=== PATIENT | male | born 1960 | race Caucasian/White ===

== ENCOUNTER → 2018-11-12 05:32 | Day surgery (SDC) | payer OTHER ==
--- NOTE | 2018-11-03 03:41 | HP ---
CC: Dr. Juan Miguel Denson * ADMISSION HISTORY AND PHYSICAL: DATE OF ADMISSION: 11/12/18 ATTENDING SURGEON: Dr. Fly Romero.* (DICTATED BY DESEAN RUFF) CHIEF COMPLAINT: Bleeding hemorrhoids. HISTORY OF PRESENT ILLNESS: This is a 58-year-old male known to our office from prior sleeve gastrectomy, who presents with a history of intermittently bleeding hemorrhoids for the past 2 to 3 years. He states that often times with bowel movements, he will notice the toilet water turn completely red and/ or have significant blood on the toilet paper. This occurs at least once weekly. He denies any pain. He did undergo colonoscopy at age 51 with apparently no significant problems at that time. He has been largely asymptomatic, though relates to feeling more tired or fatigued recently and wondered whether that could be from anemia, resulting from blood loss. His recent lab work from the end of July 2018 showed a hemoglobin of 14.2 and hematocrit of 40. His iron levels were fine. He is status post laparoscopic sleeve gastrectomy in 2012, but only recently began to resume bariatric followup. He was seen in the office by Dr. Romero on 07/14/18 at which time exam revealed a small skin tag at the 9 o'clock position. No mass was appreciated. Anoscopy was performed showing enlarged broad based internal hemorrhoids with stigmata of recent bleeding. The patient also had undergone prior hemorrhoidectomy 20 to 30 years ago after failure of banding. Dr. Romero has discussed with him the indications for surgery, the risks, benefits and alternatives as well as methods. The patient is agreeable to proceed as scheduled with examination under anesthesia and hemorrhoidectomy. PAST MEDICAL HISTORY: Morbid obesity (status post laparoscopic sleeve gastrectomy with resultant weight loss of 150 pounds which he has maintained at least 100 pounds weight loss), previously treated for hypertension but not at present, previously treated for type 2 diabetes. He has a history of GERD and dysthymic disorder. PAST SURGICAL HISTORY: Include laparoscopic sleeve gastrectomy 2012, open umbilical hernia repair with mesh in 2011, wisdom teeth extraction, and hemorrhoidectomy. No reported surgical or anesthesia complications (he did have urinary retention after the hemorrhoidectomy requiring an overnight hospital stay). CURRENT MEDICATIONS: 1. Paxil 20 mg once daily. 2. Omeprazole 20 mg once daily. 3. Multivitamin once daily. 4. Aspirin 81 mg once daily (the patient instructed to hold for 7 days preop). 5. Zolpidem 10 mg q.h.s. p.r.n. insomnia. 6. Topical hydrocortisone 10% cream p.r.n. for groin rash. 7. Vitamin B12 injection every month. DRUG ALLERGIES: LATEX (rash). FAMILY HISTORY: Negative for anesthesia problems, bleeding, or clotting disorders. SOCIAL HISTORY: The patient is and he has split custody with his 2 children. He works as a cosmetic maker. He denies use of tobacco. Drinks on average 1 alcoholic drink per day and denies other recreational drug use. REVIEW OF SYSTEMS: General: No recent constitutional symptoms or acute illnesses. His weight has been stable. HEENT: No problems reported. Cardiovascular: No chest pain, palpitations. He does state that he has a white coat syndrome in terms of his blood pressure. No history of murmur. Respiratory: No history of asthma, chronic cough, or shortness of breath. GI: GERD, controlled. No lower GI symptoms other than as indicated in the HPI. : No problems reported. Endocrine: Past history of type 2 diabetes with recent lab work showing a mildly elevated fasting glucose. I did not ask him if he had a recent A1c done. No history of thyroid dysfunction. Neuropsych: History of depression/dysthymic disorder. No additions. PHYSICAL EXAMINATION GENERAL: Well-developed, well-nourished male, in no acute distress. VITAL SIGNS: Height 6 feet 4 inches, weight 240 pounds. Blood pressure 160/100 , pulse 72, respirations 18. HEENT: Pupils equal, round, and reactive. EOMs intact. No conjunctival pallor. Oropharynx: Teeth in good repair. No intraoral lesions. NECK: No lymphadenopathy, thyromegaly, or masses. LUNGS: Clear to auscultation. No rales or wheezes. HEART: Regular rate and rhythm. No murmur noted. ABDOMEN: Well-healed subumbilical as well as laparoscopic incision sites. Soft , nontender to palpation. No palpable masses or organomegaly. GENITALIA: Not done. RECTAL: Not repeated today. See HPI. BACK: No spinous process or CVA tenderness. EXTREMITIES: No edema. NEUROLOGICAL: Grossly intact. SKIN: Warm and dry. No suspicious rashes or lesions noted. IMPRESSION: Bleeding internal hemorrhoids. PLAN: Examination under anesthesia; hemorrhoidectomy. DESEAN RUFF [id number]/[facility] #: [id number] [facility]
[~2018-11-12 05:32] MED LIST: Buffered Lidocaine 1% SYRIN* 1 ML/SYRINGE INTRADERM ONE; Bupivacaine 0.25% W/EPI* 10 ML SDV ONE; Bupivacaine 0.5% W/EPI SDV* 30 ML VIAL ONE; Bupivacaine 0.5%* 50 ML VIAL ONE; Dexamethasone IV* 4 MG/ML 1 ML (4 MG) IV SLOW PU ONE; Dexamethasone IV* 4 MG/ML 1 ML (4 MG) ONE; Famotidine IV* 10 MG/ML 2 ML (20 mg) IV ONE; Famotidine IV* 10 MG/ML 2 ML (20 mg) ONE; Gelfoam Sponge SIZE 100* SPONGE ONE; HYDROcodone/ACETAMIN 5-325 MG* 1 TAB PO PRN; Lactated Ringers 1000 ML Bag* 1,000 ML IV SCH; Lidocaine 1% INJ* 10 MG/ML 30 ML SDV ONE; Lidocaine 2% JELLY* 6 ML JELLY TOPICAL ONE; Lidocaine 2% PF * 5 ML VIAL ONE; Metoprolol Tartrate IV* 1 MG/ML 5 ML VIAL ONE; Midazolam* 1 MG/ML 5 ML VIAL (5 MG) ONE; Naloxone* 0.4 MG/ML 1 ML VIAL IV PRN; Ondansetron INJ* 2 MG/ML VIAL IV PRN; Propofol* 10 MG/ML 20 ML BTL ONE; ceFOXitin 2 GM IVPREMIX* 2 GM/50 ML BAG ONE; fentaNYL* 50 MCG/ML 2 ML VIAL (100 MCG VIAL) IV PRN; fentaNYL* 50 MCG/ML 2 ML VIAL (100 MCG VIAL) ONE; hydrALAZINE IV* 20 MG/ML VIAL ONE; oxyCODONE/Acetamin 5/325 MG* TAB PO PRN
--- NOTE | 2018-11-12 08:31 | BRIEFOPN ---
Brief Operative Note - Surgery Procedures: Procedures Pre-OP Diagnoses: Hemorrhoids Post-op Diagnosis: same Procedure: Exam under anesthesia, hemorrhoidectomy Surgeon: Heather Asst: none Anethesia: spinal, Aubrey EBL: minimal IVF: crystalloid Specimen: hemorrhoids Drains: none
[2018-11-12 10:03] VITALS: BP 141/95
--- NOTE | 2018-11-12 10:31 | OP ---
CC: Dr. Juan Miguel Denson * DATE OF OPERATION: 11/12/18 - [facility] DATE OF : 62 SURGEON: Dr. Romero. RETAIL BANKER: None. ANESTHESIOLOGIST: Dr. Burgos. ANESTHESIA: Spinal. PRE-OP DIAGNOSIS: Hemorrhoids. POST-OP DIAGNOSIS: Hemorrhoids. OPERATIVE PROCEDURE: Exam under anesthesia and hemorrhoidectomy. ESTIMATED BLOOD LOSS: Minimal. SPECIMEN: Hemorrhoids. DESCRIPTION OF PROCEDURE: Mr. Smith was identified in the preoperative area. Consent was signed. He was taken to the operating room, spinal anesthesia delivered, and the patient was placed on the OR table in a Jackknife prone position. Buttocks were tapped apart, and perianal area was prepped sterilely. The patient was draped and the time-out was performed. Digital rectal exam was performed up to 3 fingers slowly. The perianal area showed bulky hemorrhoidal tissue throughout. On anoscopy, we could see large internal hemorrhoid at approximately 11 o'clock and another at 5 o'clock. There was no evidence of anal fissure. No fistulas. No evidence of abscess. Next, the perianal skin was incised. This was extended down the mucosa overlying the hemorrhoids at the 11 o'clock hemorrhoidal position. This was then dissected off of the sphincter slowly, and we gained hemostasis with LigaSure device. This was then passed off as specimen. We then turned our attention to the other smaller hemorrhoidal tissue at the 5 o'clock position. This was similarly taken, it was dissected gently off of the sphincter muscle, and the hemorrhoid was excised in its entirety and passed off as specimen. I did close the perianal skin with 3-0 Vicryl suture and left the open mucosal area without sutures. A Gelfoam was then placed inside the anus and the patient was woken up and transferred to the PACU in stable condition. [id number]/[facility] #: [id number] MTDD
== END | disposition home or self-care (01) ==
LOC: OR 05:32
PROVIDERS: ATTEND Surgery
DX: K64.8 Other hemorrhoids (principal)
CPT/HCPCS: 88304; J0360; J0694; J1100; J2250; J2704; J3010; J3490

== ENCOUNTER 2019-05-14 19:56 | Inpatient (IN) | payer OTHER ==
[2019-05-14] MEDS ORDERED: NS 0.9% 1000 ML** 1,000 ML IV ONE (21:13)
[2019-05-14] MEDS ORDERED: Ondansetron INJ* 2 MG/ML VIAL IV ONE (21:13)
[2019-05-14] MEDS ORDERED: Ketorolac INJ* 30 MG/ML 1 ML VIAL IV PUSH ONE (21:13)
[2019-05-14 21:46] LABS: ABS Basophils 0.1 10^3/ul (0-0.2); ABS Eosinophils 0.3 10^3/ul (0-0.6); ABS Lymphocytes 1.2 10^3/ul (1.0-4.8); ABS Neutrophils 13.1 10^3/ul (1.5-7.7); Eosinophil % 1.9 %; Hematocrit 31 % (42-52); Hemoglobin 10.5 g/dL (14.0-18.0); Lymphocyte % 7.6 %; Mean Corpuscular HGB Conc 34 g/dL (31-36); Mean Corpuscular Hemoglobin 30 pg (27-31); Mean Corpuscular Volume 90 fL (80-94); Mean Platelet Volume 7.1 fL (7.4-10.4); Platelet Count 520 10^3/uL (150-450); Red Blood Count 3.47 10^6 /uL (4.18-5.48); Red Cell Distribution Width 14 % (10-15); White Blood Count 15.6 10^3/uL (3.5-10.8)
--- NOTE | 2019-05-14 21:54 | ED ---
Complex/Multi-Sys Presentation - HPI Summary HPI Summary: This patient is a 58 year old M presenting to [facility] accompanied by Ex- with a chief complaints of N/V/D, ankle pain and cough since 04/23/19. Patient states he was seen at Urgent care on 04/30/19 for a fall. Patient received a chest X- ray which revealed bruised ribs and fluid in lungs. As a result patient received antibiotics and reports that symptoms have not improved. Patient reports diaphoresis, chills, cough, n/v/d, ankle pain. Patient denies fever at this time but previously had a fever of 100.6. Patient also denies any EtOH use and tobacco use. Patient reports PMHx of GERD, depression and HTN. The patient rates the pain 8/10 in severity. Symptoms aggravated by nothing. Symptoms alleviated by nothing. Home Medications Medication Instructions Recorded Confirmed Type Omeprazole CAP(NF) [PriLOSEC 20 mg PO QAM 11/07/18 05/14/19 History CAP(NF)] PARoxetine HCL TAB* [Paxil TAB*] 20 mg PO BEDTIME 11/07/18 05/14/19 History Aspirin EC TAB* [Ecotrin EC Low 81 mg PO DAILY 05/14/19 05/14/19 History Dose 81 MG*] Cyanocobalamin INJ * [Vitamin B12 1,000 mcg IM MONTHLY 05/14/19 05/14/19 History INJ *] Hydrochlorothiazide TAB* 25 mg PO DAILY 05/14/19 05/14/19 History [Hydrodiuril TAB*] Losartan TAB* [Cozaar TAB*] 50 mg PO DAILY 05/14/19 05/14/19 History Multivitamins/Minerals TAB* 1 tab PO DAILY 05/14/19 05/14/19 History [Theragran/minerals TAB*] Naproxen Sodium [Aleve] 220 mg PO Q4HR PRN 05/14/19 05/14/19 History Triamcinolone 0.025% CM(NF) 1 applic TOPICAL BID PRN 05/14/19 05/14/19 History [Kenalog Cream 0.025%*] Zolpidem CR (NF) [Ambien CR (NF)] 12.5 mg PO BEDTIME PRN 05/14/19 05/14/19 History - History Of Current Complaint Chief Complaint: EDGeneral Time Seen by Provider: 05/14/19 20:52 Hx Obtained From: Patient, Family/Drop Forger - Ex Onset/Duration: Gradual Onset, Lasting Weeks Timing: Constant Severity Currently: Mild Location: Negative Associated Signs And Symptoms: Positive: Cough, Nausea, Vomiting, Diarrhea, Diaphoresis - at night, Recent Trauma - Fall 04/23/19, Other - Chills,. Negative : Fever - Allergies/Home Medications Allergies/Adverse Reactions: Allergies Allergy/AdvReac Type Severity Reaction Status Date / Time hydrocodone [From Vicodin] Allergy Agitation Verified 05/15/19 02:56 latex Allergy Rash Verified 05/14/19 20:11 bee stings Allergy Severe Anaphylatic Uncoded 05/14/19 20:11 Shock Home Medications: Home Medications Aspirin EC TAB* [Ecotrin EC Low Dose 81 MG*] 81 mg PO DAILY 05/14/19 [History Confirmed 05/14/19] Cyanocobalamin INJ * [Vitamin B12 INJ *] 1,000 mcg IM MONTHLY 05/14/19 [History Confirmed 05/14/19] Hydrochlorothiazide TAB* [Hydrodiuril TAB*] 25 mg PO DAILY 05/14/19 [History Confirmed 05/14/19] Losartan TAB* [Cozaar TAB*] 50 mg PO DAILY 05/14/19 [History Confirmed 05/14/19] Multivitamins/Minerals TAB* [Theragran/minerals TAB*] 1 tab PO DAILY 05/14/19 [ History Confirmed 05/14/19] Naproxen Sodium [Aleve] 220 mg PO Q4HR PRN 05/14/19 [History Confirmed 05/14/19] Triamcinolone 0.025% CM(NF) [Kenalog Cream 0.025%*] 1 applic TOPICAL BID PRN 08/20 [History Confirmed 05/14/19] Zolpidem CR (NF) [Ambien CR (NF)] 12.5 mg PO BEDTIME PRN 05/14/19 [History Confirmed 05/14/19] PMH/Surg Hx/FS Hx/Imm Hx Endocrine/Hematology History: Reports: Hx Diabetes - RESOLVED AFTER GASTRIC BYPASS, Hx Anemia - last dose aspirin 11/06/18 Denies: Hx Sickle Cell Disease Cardiovascular History: Reports: Hx Hypertension Denies: Hx Pacemaker/ICD, Other Cardiovascular Problems/Disorders Respiratory History: Reports: Hx Asthma Denies: Other Respiratory Problems/Disorders GI History: Reports: Hx Gastroesophageal Reflux Disease - omeprazole, Other GI Disorders - Bleeding hemorrhoids, hernia repair History: Reports: Other Problems/Disorders - urinary retention after previous hemorrhoidectomy requiring overnite stay Musculoskeletal History: Reports: Hx Back Problems - chronic pain Denies: Other Musculoskeletal History Sensory History: Reports: Hx Contacts or Glasses - Readers and prescription Denies: Hx Hearing Aid Opthamlomology History: Reports: Hx Contacts or Glasses - Readers and prescription Neurological History: Denies: Other Neuro Impairments/Disorders Psychiatric History: Reports: Hx Anxiety - takes paxil Denies: Hx Panic Disorder - Surgical History Surgical History: Yes Surgery Procedure, Year, and Place: 11/11 [facility] [place] Umbilical her[place]. Hemorrhoidectomy. [place] teeth extraction. Gastric sleeve 2012 Hx Anesthesia Reactions: No Infectious Disease History: No Infectious Disease History: Denies: Traveled Outside the [place] in Last 30 Days - Family History Known Family History: Positive: Hypertension, Other - Cancer Negative: Diabetes - Social History Alcohol Use: Occasionally Substance Use Type: Reports: None Smoking Status (MU): Never Smoked Tobacco Review of Systems Positive: Chills, Skin Diaphoresis - at night . Negative: Fever Positive: Cough Positive: Vomiting, Diarrhea, Nausea All Other Systems Reviewed And Are Negative: Yes Physical Exam - Summary Physical Exam Summary: General: Well-developed, Mildly ill appearing MALE. No acute distress. HEENT: Normocephalic, Atraumatic. Eyes: Conjuctiva normal, PERRL. Ears: TMs within normal limits. Nares: (-) discharge, (-) erythema. Oropharynx: Clear, mucous membranes moist, (-) exudates. Neck: Soft, FROM, (-) lymphadenopathy, (-) thyromegaly, (-) JVD. Cardiovascular: Normal sinus rhythm, (-) murmur. Lungs: Clear to auscultation bilaterally (-) wheezes, (-) rales, (-) rhonchi. Abdomen: Soft, non-tender, non-distended, (-) organomegaly, normal bowel sounds. Back: (-) CVA tenderness Extremities: No edema. Ankle tenderness on heel. Skin: Warm, dry, (-) rash. Neuro: Alert and oriented x3, no focal deficits. Psychiatric: Mood normal, affect normal. Triage Information Reviewed: Yes Vital Signs On Initial Exam: Initial Vitals Temp Pulse Resp BP Pulse Ox 100.1 F 83 16 114/79 96 05/14/19 20:03 05/14/19 20:03 05/14/19 20:03 05/14/19 20:03 05/14/19 20:03 Vital Signs Reviewed: Yes Diagnostics - Vital Signs Vital Signs Temp Pulse Resp BP Pulse Ox 05/14/19 20:03 100.1 F 83 16 114/79 96 - Laboratory Lab Results: Lab Results 05/14/19 Range/Units 21:28 WBC 15.6 H (3.5-10.8) 10^3/uL RBC 3.47 L (4.18-5.48) 10^6 /uL Hgb 10.5 L (14.0-18.0) g/dL Hct 31 L (42-52) % MCV 90 (80-94) fL MCH 30 (27-31) pg MCHC 34 (31-36) g/dL RDW 14 (10-15) % Plt Count 520 H (150-450) 10^3/uL MPV 7.1 L (7.4-10.4) fL Neut % (Auto) 83.6 % Lymph % (Auto) 7.6 % [place] % (Auto) 6.3 % Eos % (Auto) 1.9 % Baso % (Auto) 0.6 % Absolute Neuts (auto) 13.1 H (1.5-7.7) 10^3/ul Absolute Lymphs (auto) 1.2 (1.0-4.8) 10^3/ul Absolute Monos (auto) 1.0 H (0-0.8) 10^3/ul Absolute Eos (auto) 0.3 (0-0.6) 10^3/ul Absolute Basos (auto) 0.1 (0-0.2) 10^3/ul Absolute Nucleated RBC 0.0 10^3/ul Nucleated RBC % 0.0 Result Diagrams: 05/14/19 21:28 05/14/19 21:00 Lab Statement: Any lab studies that have been ordered have been reviewed, and results considered in the medical decision making process. - Radiology Chest Xray Radiology Interpretation Completed By: ED Physician Summary of Radiographic Findings: CXR reveals, per ED Physician, right lower lobe consolidation no significant change from previous Xray. Pending offical report. - CT [place]/Adb/Pelvis CT Interpretation Completed By: Radiologist Summary of CT Findings: Chest/Abd/Pelvis CT Scan reveals, per raadiologist IMPRESSION: 1. Masslike consolidation with areas of central hypodensity in the posterior basal segment right lower lobe with adjacent pleural thickening and minimal pleural fluid which could represent a lung abscess although neoplasm, evolving infarct, pulmonary sequestration,, and central obstructing lesion are in the differential. Correlate with patient's symptoms. Consider bronchoscopy for further evaluation.2. Right posterior inferior pleural thickening and trace right pleural fluid. 3. Moderate hiatal hernia. 4.See separate abdomen and pelvis CT report. ED Physician has reviewed this report. Complex Multi-Symp Course/Dx Course Of Treatment: This patient is a 58 year old M presenting to [facility] [place] accompanied by Ex- with a chief complaints of N/V/D, ankle pain and cough since 04/23/19. Physical Exam Findings mildly ill appearing male with ankle tenderness on heal. Chest/Abd/Pelvis CT Scan reveals, per raadiologist IMPRESSION: 1. Masslike consolidation with areas of central hypodensity in the posterior basal segment right lower lobe with adjacent pleural thickening and minimal pleural fluid which could represent a lung abscess although neoplasm, evolving infarct, pulmonary sequestration,, and central obstructing lesion are in the differential. Correlate with patient's symptoms. Consider bronchoscopy for further evaluation.2. Right posterior inferior pleural thickening and trace right pleural fluid. 3. Moderate hiatal hernia. 4.See separate abdomen and pelvis CT report. ED Physician has reviewed this report. CXR reveals, per ED Physician, right lower lobe consolidation no significant change from previous Xray. Pending offical report. In the ED course the patient was given Toradol 15 mg, Zofran 4mg, Zosyn Bag 3.375 gm, Soium Chloride 1000 mls X3.We discussed patient care with Dr. Naqvi at 0043 and they recommended admitted to [facility] [place]. Patient is agreeable with this plan. - Diagnoses Provider Diagnoses: Pneumonia - Physician Notifications Discussed Care Of Patient With: Lino Naqvi - Hospitalist Time Discussed With Above Provider: 00:43 Instructed by Provider To: Other - Dr. Naqvi accepts patient for admission. Discharge ED - Sign-Out/Discharge Documenting (check all that apply): Patient Departure - admitted Patient Received Moderate/Deep Sedation with Procedure: No - Discharge Plan Condition: Stable Disposition: ADMITTED TO [facility] - Billing Disposition and Condition Condition: STABLE Disposition: Admitted to [facility] - Attestation Statements Document Initiated by Ana Mariaibe: Yes Documenting Scribe: Shaila Romo Provider For Whom Scribe is Documenting (Include Credential): Dr. Ila Bowie MD Scribe Attestation: Shaila Nunn scribed for Dr. Ila Bowie MD on 05/15/19 at 0650. Scribe Documentation Reviewed: Yes Provider Attestation: The documentation as recorded by the Shaila mckeon accurately reflects the service I personally performed and the decisions made by me, Dr. Ila Bowie MD Status of Scribe Document: Viewed
[2019-05-14 22:02] LABS: Albumin 3.4 g/dL (3.2-5.2); Albumin/Globulin Ratio 0.9 (1-3); C Reactive Protein 145.55 mg/L (<8.01); Calcium 8.7 mg/dL (8.6-10.3); EGFR African American 61.7 (>60); Globulin 3.8 g/dL (2-4); Potassium 3.8 mmol/L (3.5-5.0); Total Bilirubin 0.4 mg/dL (0.2-1.0); Total Protein 7.2 g/dL (6.4-8.9)
[2019-05-14 22:03] LABS: Influenza A Molecular NEGATIVE (Negative); Influenza B Molecular NEGATIVE (Negative)
[2019-05-14] MEDS ORDERED: Iodixanol* (CONTRAST) 320 MG/ML 100 ML SDV IV ONE (22:33)
[2019-05-15] MEDS ORDERED: Piperacillin/Tazobac ADVAN(*) 3.375 GM in NS 0.9% 100 ML* 100 ML IVPB ONE ×2 (00:26→08:00)
[2019-05-15] MEDS ORDERED: Piperacillin/Tazobac (*) 3.375 GM BAG ONE (00:45)
[2019-05-15] MEDS ORDERED: NS 0.9% 1000 ML** 1,000 ML IV ONE ×3 (02:56→12:16)
[2019-05-15] MEDS: Acetaminophen TAB* 325 MG PO PRN ×2 (03:19→17:56)
[2019-05-15] MEDS ORDERED: Zosyn per Pharmacy* NOTE FOLLOW UP SCH (04:00)
[2019-05-15] MEDS ORDERED: NS 0.9% 250 ML* 250 ML IV ONE (04:30)
[2019-05-15] MEDS ORDERED: ZOSYN 3.375 GM Q8H per EXTENDED INFUSION IVPB SCH ×2 (05:00)
--- NOTE | 2019-05-15 07:49 | HP ---
HISTORY AND PHYSICAL: DATE OF ADMISSION: 05/15/19 ADMITTING PROVIDER: Lino Naqvi MD PRIMARY CARE PROVIDER: Dr. Denson. CHIEF COMPLAINT: Right-sided pleuritic chest pain, left ankle pain, decreased appetite with loss of 30 pounds, subjective fevers and chills and productive cough. HISTORY OF PRESENT ILLNESS: Ras Smith is a 58-year-old male with past medical history of hypertension; obesity, status post sleeve gastrectomy (2012) ; resolved diabetes mellitus, type 2. Around 04/23/19, he tripped over some uneven sidewalk pavement falling on to his right side. He developed some aches and pains especially in his right arm and right chest especially with deep breath over the next few days. On 04/30/19, he went to [facility] and had a rib x-ray, which was suggestive of atelectasis or consolidation of the right lung base. He was given a 7-day course of Augmentin, a lidocaine patch, and naproxen. The x-ray did not show any rib fractures. He followed up with a PA with Dr. Hernandez's office the day prior to admission and was referred to the ED for further evaluation because he had complaints of 30-pound weight loss, very poor appetite, productive cough, subjective fevers, and chills, was still with some chest discomfort (though that has improved) and there had not been any labs done at the Urgent Care initially. [place] [facility] [place] had a leukocytosis of 15.6, temperature was 100.1, CRP of 145, hemoglobin of 10.5. Initial chest x-ray, official read pending, was still concerning for some potential infiltrate at the right base on the lateral view. He had a CT of the chest, abdomen, and pelvis with IV contrast, which demonstrated a mass-like consolidation. There is substantial hypodensity in the posterior basal segment of the right lower lobe with adjacent pleural thickening and minimal pleural fluid, which could represent a lung abscess, although neoplasm, evolving infarct , pulmonary sequestration, and central obstructing lesion are in the differential. Recommendation to consider bronchoscopy for further evaluation. There was a right posterior inferior pleural thickening and trace right pleural fluid. He was referred to hospitalist service for admission, further workup of this right lung finding, and given his leukocytosis and fever, he met SIRS and sepsis criteria with suspected source of possible lung abscess. PAST MEDICAL HISTORY: Hypertension, resolved morbid obesity/diabetes mellitus after a sleeve gastrectomy resulted in massive weight loss, depression, GERD, insomnia. PAST SURGICAL HISTORY: Includes: 1. Sleeve gastrectomy. 2. Hemorrhoidectomy. 3. [place] teeth removal. 4. Umbilical hernia repair. MEDICATIONS: Include: 1. Naproxen 220 mg p.o. q.4 hours p.r.n. 2. Triamcinolone application topical b.i.d. p.r.n. 3. Hydrochlorothiazide 25 mg p.o. daily. 4. Aspirin 81 mg daily. 5. Multivitamin 1 tab p.o. daily. 6. Vitamin B12 injected IM monthly. 7. Ambien 12.5 mg p.o. at bedtime. 8. Paxil 20 mg p.o. at bedtime. 9. Omeprazole 20 mg p.o. q.a.m. 10. Losartan 50 mg p.o. daily. ALLERGIES: VICODIN caused agitation, nausea, and worse pain. He has rash to LATEX and anaphylactic shock to BEE STINGS. FAMILY HISTORY: His father of lung, metastatic to brain, cancer at age 42. His mother of also lung, metastatic to brain, cancer at age 75. He has 2 sons, ages 7 and 10. SOCIAL HISTORY: The patient is a never smoker, rare alcohol use. No drug use. 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 He is . His ex- is his medical surrogate, Jessika Smith. He desires to be a full code. REVIEW OF SYSTEMS: A 14-point review of systems negative except as per HPI. He does attest to left ankle pain that has caused him to be socially bed bound from the last day. Jessika is in the room and says that she actually hit his leg with the wheelchair in the office today, but there had been pain even prior to this event. PHYSICAL EXAMINATION GENERAL APPEARANCE: No acute distress. VITAL SIGNS: Temperature 100.1, pulse rate 60s to 95, satting 88% to 96% on room air, blood pressure initially 114/79, low of 97/54. HEENT: Normocephalic, atraumatic. Pupils equal, round, and reactive to light. Extraocular motions intact. No scleral icterus. NECK: Supple. LUNGS: Clear to auscultation bilaterally except for decreased breath sounds at the right base. CARDIOVASCULAR: Regular rate and rhythm. No murmurs, rubs, or gallops. ABDOMEN: Soft, nontender, nondistended. EXTREMITIES: Warm, well perfused. His left midfoot superiorly is warm with slight erythema and tender to palpation. Minimal swelling, no induration, some guarding. NEUROLOGIC: Cranial nerves II through XII intact. Moving all extremities. DIAGNOSTIC STUDIES/LAB DATA: White count 15.6, hemoglobin 10.5, hematocrit 31 , platelets 520. Sodium 138, potassium 3.8, chloride 101, carbon dioxide 29, BUN 20, creatinine 1.43, glucose 218, lactic acid 2.0, calcium 8.7. Total bili 0.4, AST 10, ALT 10, alk phos 71. CRP 145.5. Albumin 3.4. Influenza A and B negative. Imaging: Chest x-ray formal read pending, but lateral view suggestive of right base infiltrate or consolidation. CT chest, abdomen, and pelvis with IV contrast with impression: 1. Mass-like consolidation with areas of central hypodensity in the posterior basal segment of the right lower lobe with adjacent pleural thickening and minimal pleural fluid, which could represent a lung abscess, although neoplasm, evolving infarct, pulmonary sequestration, and central obstructing lesion are in the differential. Correlate with the patient's symptoms. Consider bronchoscopy for further evaluation. 2. Right posterior inferior pleural thickening and trace right pleural fluid. 3. Moderate hiatal hernia. 4. See separate abdomen and pelvis CT report, which impression was surgical change in proximal stomach, tiny bilateral renal cortical hypodensities, largest located on the left kidney measuring higher than simple fluid density, which could represent a complex cyst or a small cell lesion. Diverticula are present in the distal colon, no diverticulitis, no bowel obstruction. ASSESSMENT AND PLAN: Ras Smith is a 58-year-old male with past medical history of hypertension, obesity s/p sleeve gastrectomy, and a fall on 04/23/19 , status post 7 days of Augmentin for right lower lung infiltrate, presenting with sepsis and continued right lower lung consolidation concerning for potential abscess. He has been started on Zosyn. We will continue that. He is with lactic acidosis. He is status post 1 L of normal saline. I will give him additional 2.06 L for 30 cc sepsis fluid bolus dose. He certainly has some guarding, swelling, warmth of his left mid foot, x-rays have been shot, but formal read pending. I am adding on a uric acid level. His glucose is actually quite elevated at 218. He has an A1c of 5.1 back in September of 2018, I will add on another one there and check his glucose q.a.c., h.s. Hold off for sliding scale insulin now until further information. He is going to be n.p.o. for potential diagnostic thoracentesis or bronchoscopy. Would recommend consulting Dr. Espinosa or Interventional Radiology in the morning, to sample this mass, which is concerning for abscess clinically, but could also represent potential malignancy. His creatinine is elevated from baseline 1.2 last, although does not meet strictly criteria for acute kidney injury. He is getting sepsis fluid bolus. Repeat BMP daily. He has had very poor appetite notably and has lost reportedly 30 pounds over the last few weeks. We will have Physical Therapy work with him, as he has been essentially bed bound for the last day and a half. Will f/u left foot x-rays, to see if any weightbearing restrictions may be applicable. Add LDH and AM total protein, in order to help in calculating Light's criteria on potential diagnostic thoracentesis . He has bad reactions to any narcotic pain medication in the past, more specifically Vicodin per recollection, but more general concerns by the patient and his ex-, we will continue acetaminophen for now p.r.n. I am holding his home antihypertensive medications (losartan 50mg daily and hydrochlorothiazide 25 mg daily) given slight bump in creatinine and borderline low blood pressures. Monitor clinically and adjust as needed. Continue his Paxil 20 mg p.o. q.h.s. for depression and Ambien 12 mg p.o. at bedtime p.r.n. for insomnia. He is being admitted to inpatient status for sepsis and for diagnostic thoracentesis vs bronch. . Medical surrogate is ex-, Jessika Smith. Holding DVT chemical ppx until procedural plan is clarified in the AM. He is a full code [id number]/[facility] #: [id number] MTDD
[2019-05-15] MEDS ORDERED: Dextrose 50% VIAL 50 ml IV PUSH PRN (08:34)
[2019-05-15 08:46] LABS: ABS Basophils 0.1 10^3/ul (0-0.2); ABS Eosinophils 0.5 10^3/ul (0-0.6); ABS Lymphocytes 1.4 10^3/ul (1.0-4.8); ABS Monocytes 0.9 10^3/ul (0-0.8); ABS Neutrophils 9.6 10^3/ul (1.5-7.7); Eosinophil % 3.7 %; Hematocrit 28 % (42-52); Hemoglobin 9.6 g/dL (14.0-18.0); Mean Corpuscular HGB Conc 34 g/dL (31-36); Mean Corpuscular Hemoglobin 31 pg (27-31); Mean Corpuscular Volume 90 fL (80-94); Platelet Count 389 10^3/uL (150-450); Red Blood Count 3.12 10^6 /uL (4.18-5.48); Red Cell Distribution Width 14 % (10-15); White Blood Count 12.4 10^3/uL (3.5-10.8)
[2019-05-15 08:55] LABS: INR 1.36 (0.82-1.09)
[2019-05-15 08:59] LABS: BUN/Creatinine Ratio 13.1 (8-20); Calcium 7.9 mg/dL (8.6-10.3); EGFR African American 68.8 (>60); EGFR Non-African American 56.9 (>60); Potassium 3.9 mmol/L (3.5-5.0); Total Protein 5.8 g/dL (6.4-8.9); Uric Acid 5.4 mg/dL (4.4-7.6)
[2019-05-15] MEDS: Piperacillin/Tazobac ADVAN(*) 3.375 GM in NS 0.9% 100 ML* 100 ML IVPB SCH ×2 (10:36→17:56)
[2019-05-15] MEDS: Pantoprazole TAB * 40 MG TAB PO SCH (10:36)
[2019-05-15] MEDS: Multivitamins/Minerals TAB PO SCH (10:36)
[2019-05-15] MEDS: Insulin LISPRO* 1 UNITS UNIT SUBCUT SCH ×3 (11:54→20:50)
--- NOTE | 2019-05-15 13:19 | PN ---
Subjective Date of Service: 05/15/19 Interval History: 58 y/o M with h/o HTN, Obesity(s/p sleeve gastrectomy), T2dM, recent h/o fall and treatment of lung infiltrate with 7 day augmentin presented with productive cough, chest discomfort, fever with chills and rigor, 30 lb weight loss. found to have sepsis and mass like consolidation on right lower lung suggestive of abscess>malignancy. On zosyn. CT guided biopsy on saturday. Complains of left ankle pain. Xray normal. At present VS stable. Objective Active Medications: Acetaminophen (Tylenol Tab*) 650 mg PO Q6H PRN PRN Reason: PAIN-MILD/TEMP >/= 100.4 Last Admin: 05/15/19 03:19 Dose: 650 mg Dextrose (Dextrose 50% Vial 50 Ml*) 25 ml IV PUSH .FOR FS < 60 - SS PRN PRN Reason: FS < 60 Piperacillin Sod/Tazobactam (Sod 3.375 gm/ Sodium Chloride) 100 mls @ 25 mls/ hr IVPB Q8H [facility] Last Admin: 05/15/19 10:36 Dose: 25 mls/hr Sodium Chloride (Ns 0.9% 1000 Ml) 1,000 mls @ 1,000 mls/hr IV .PER RATE ONE Stop: 05/15/19 13:15 Sodium Chloride (Ns 0.9% 1000 Ml) 1,000 mls @ 100 mls/hr IV PER RATE [facility] Insulin Human Lispro (Humalog*) 0 units SUBCUT ACHS [facility]; Protocol Last Admin: 05/15/19 11:54 Dose: Not Given Multivitamins/Minerals (Theragran/Minerals Tab*) 1 tab PO DAILY [facility] Last Admin: 05/15/19 10:36 Dose: 1 tab Pantoprazole Sodium (Protonix Tab*) 40 mg PO QAM [facility] Last Admin: 05/15/19 10:36 Dose: 40 mg Paroxetine HCl (Paxil Tab*) 20 mg PO BEDTIME [facility] Pharmacy Consult (Zosyn Per Pharmacy*) 1 note FOLLOW UP .ZOSYN PER PHARMACY [facility] Zolpidem Tartrate (Ambien Tab*) 10 mg PO BEDTIME PRN PRN Reason: SLEEP Vital Signs - 8 hr 05/15/19 05/15/19 07:50 08:00 Temperature 98 F Pulse Rate 58 Respiratory 14 18 Rate Blood Pressure 104/48 (mmHg) O2 Sat by Pulse 95 Oximetry Oxygen Devices in Use Now: None Exam: Patient is lying on a bed with no any acute distress. HEENT: Normocephalic and atraumatic Lung: Decreased breath sound on right lower base. Heart: normal heart sound heard with no any murmur. Abdomen: Soft, nondistended and nontender. Normal BS heard. Extremity: Tenderness on left ankle joint with decreased range of motion. Neuro: Alert, conscious and Coperative. Moving all four extremity. Result Diagrams: 05/15/19 08:30 05/15/19 08:29 Additional Lab and Data: Lab Results 05/14/19 Range/Units 21:28 WBC 15.6 H (3.5-10.8) 10^3/uL RBC 3.47 L (4.18-5.48) 10^6 /uL Hgb 10.5 L (14.0-18.0) g/dL Hct 31 L (42-52) % MCV 90 (80-94) fL MCH 30 (27-31) pg MCHC 34 (31-36) g/dL RDW 14 (10-15) % Plt Count 520 H (150-450) 10^3/uL MPV 7.1 L (7.4-10.4) fL Neut % (Auto) 83.6 % Lymph % (Auto) 7.6 % [place] % (Auto) 6.3 % Eos % (Auto) 1.9 % Baso % (Auto) 0.6 % Absolute Neuts (auto) 13.1 H (1.5-7.7) 10^3/ul Absolute Lymphs (auto) 1.2 (1.0-4.8) 10^3/ul Absolute Monos (auto) 1.0 H (0-0.8) 10^3/ul Absolute Eos (auto) 0.3 (0-0.6) 10^3/ul Absolute Basos (auto) 0.1 (0-0.2) 10^3/ul Absolute Nucleated RBC 0.0 10^3/ul Nucleated RBC % 0.0 Assess/Plan/Problems-Billing Assessment: 58 y/o M with h/o HTN, Obesity(s/p sleeve gastrectomy), T2dM, recent h/o fall and treatment of lung infiltrate with 7 day augmentin presented with productive cough, chest discomfort, fever with chills and rigor, 30 lb weight loss. found to have sepsis and mass like consolidation on right lower lung suggestive of abscess>malignancy. On zosyn. CT guided biopsy on saturday. Left ankle pain with normal xray. - Patient Problems (1) Sepsis Current Visit: Yes Status: Acute Comment: Secondary to suspected right lung abscess. VITALS stable at present. Lactic acid normal. has productive cough, fever with chills and rigor, sweats, weight loss. Ct shows mass like consolidation. Could be infection like abscess or malignancy. He is on IV zosyn. plan is to do us guided lung biopsy. Pulmonology following. (2) Anemia Current Visit: Yes Status: Acute Code(s): D64.9 - ANEMIA, UNSPECIFIED SNOMED Code(s): 720023546 Comment: Has normocytic anemia. Needs work up for anemia with iron studies and screening coloscopy. (3) Left lateral ankle pain Current Visit: Yes Status: Acute Code(s): M25.572 - PAIN IN LEFT ANKLE AND JOINTS OF LEFT FOOT SNOMED Code(s): 213922103 Comment: pain for 10 days. Xray didnot show any osseous abnormality. has tenderness. no redness noted. on acetaminophen prn will consult ortho will also order doppler (4) Diabetes Current Visit: Yes Status: Acute Code(s): E11.9 - TYPE 2 DIABETES MELLITUS WITHOUT COMPLICATIONS SNOMED Code(s): 42405971 Comment: was not on medication as his diabetes resolved after bariatic surgery. His HbA1c now is 6.8; which confirns diabetes. on insulin ss. (5) HTN (hypertension) Current Visit: Yes Status: Acute Code(s): I10 - ESSENTIAL (PRIMARY) HYPERTENSION SNOMED Code(s): 50726342 Comment: BP on softer side. so his home antihypertensive is put on hold. (6) Depression Current Visit: Yes Status: Acute Code(s): F32.9 - MAJOR DEPRESSIVE DISORDER , SINGLE EPISODE, UNSPECIFIED SNOMED Code(s): 67241424 Comment: on paroxetine and zolpidem (7) GERD (gastroesophageal reflux disease) Current Visit: Yes Status: Acute Code(s): K21.9 - GASTRO-ESOPHAGEAL REFLUX DISEASE WITHOUT ESOPHAGITIS SNOMED Code(s): 933233146 Comment: on pantoprazole (8) DVT prophylaxis Current Visit: Yes Status: Acute Code(s): Z29.9 - ENCOUNTER FOR PROPHYLACTIC MEASURES, UNSPECIFIED SNOMED Code(s): 297734574 (9) Full code status Current Visit: Yes Status: Acute Code(s): Z78.9 - OTHER SPECIFIED HEALTH STATUS SNOMED Code(s): 245251790 Attending: Claudia May Attestation Documenting Resident: Malika Spence Supervising Physician: Claudia may Attestation: This service has been performed in part by a resident under the direction of a teaching physician.I, Claudia may, performed the service, or was physically present during the critical, or miles portions of the service, furnished by the resident. I participated in the management of the patient.
[2019-05-15] MEDS: NS 0.9% 1000 ML** 1,000 ML IV SCH (16:28)
[2019-05-15] MEDS: Heparin VIAL(*) 5000 UNITS/ML VIAL (FIVE THOUSAND) SUBCUT SCH ×2 (16:33→20:52)
[2019-05-15] MEDS: Zolpidem TAB* 10 MG PO PRN (20:49)
[2019-05-15] MEDS: PARoxetine HCL TAB* 20 MG PO SCH (20:50)
[2019-05-16] MEDS: Piperacillin/Tazobac ADVAN(*) 3.375 GM in NS 0.9% 100 ML* 100 ML IVPB SCH ×3 (02:48→18:02)
[2019-05-16] MEDS: Heparin VIAL(*) 5000 UNITS/ML VIAL (FIVE THOUSAND) SUBCUT SCH ×3 (05:28→21:25)
[2019-05-16] MEDS ORDERED: Ketorolac INJ* 30 MG/ML 1 ML VIAL IV ONE (05:38)
--- NOTE | 2019-05-16 07:30 | PN ---
Subjective Date of Service: 05/16/19 Interval History: Day 2 NO acute overnight events. VSS Patient feeling well. Cough improving. left ankle pain improving. Objective Active Medications: Acetaminophen (Tylenol Tab*) 650 mg PO Q6H PRN PRN Reason: PAIN-MILD/TEMP >/= 100.4 Last Admin: 05/15/19 17:56 Dose: 650 mg Dextrose (Dextrose 50% Vial 50 Ml*) 25 ml IV PUSH .FOR FS < 60 - SS PRN PRN Reason: FS < 60 Heparin Sodium (Porcine) (Heparin Vial(*)) 5,000 units SUBCUT Q8HR [facility] Last Admin: 05/16/19 05:28 Dose: 5,000 units Piperacillin Sod/Tazobactam (Sod 3.375 gm/ Sodium Chloride) 100 mls @ 25 mls/ hr IVPB Q8H [facility] Last Admin: 05/16/19 02:48 Dose: 25 mls/hr Sodium Chloride (Ns 0.9% 1000 Ml) 1,000 mls @ 100 mls/hr IV PER RATE [facility] Last Admin: 05/15/19 16:28 Dose: 100 mls/hr Insulin Human Lispro (Humalog*) 0 units SUBCUT ACHS [facility]; Protocol Last Admin: 05/15/19 20:50 Dose: 1 units Multivitamins/Minerals (Theragran/Minerals Tab*) 1 tab PO DAILY [facility] Last Admin: 05/15/19 10:36 Dose: 1 tab Pantoprazole Sodium (Protonix Tab*) 40 mg PO QAM [facility] Last Admin: 05/15/19 10:36 Dose: 40 mg Paroxetine HCl (Paxil Tab*) 20 mg PO BEDTIME [facility] Last Admin: 05/15/19 20:50 Dose: 20 mg Pharmacy Consult (Zosyn Per Pharmacy*) 1 note FOLLOW UP .ZOSYN PER PHARMACY [facility] Zolpidem Tartrate (Ambien Tab*) 10 mg PO BEDTIME PRN PRN Reason: SLEEP Last Admin: 05/15/19 20:49 Dose: 10 mg Vital Signs - 8 hr 05/15/19 05/15/19 05/16/19 23:40 23:50 03:13 Temperature 98.8 F Pulse Rate 83 Respiratory 18 18 Rate Blood Pressure 110/70 103/50 (mmHg) O2 Sat by Pulse 96 Oximetry Oxygen Devices in Use Now: None Exam: Patient is lying on a bed with no any acute distress. HEENT: Normocephalic and atraumatic Lung: Decreased breath sound on right lower base with some crackles Heart: normal heart sound heard with no any murmur. Abdomen: Soft, nondistended and nontender. Normal BS heard. Extremity: Tenderness on left ankle joint with decreased range of motion. Neuro: Alert, conscious and Coperative. Moving all four extremity. Result Diagrams: 05/16/19 06:52 05/16/19 06:52 Additional Lab and Data: Lab Results 05/14/19 Range/Units 21:28 WBC 15.6 H (3.5-10.8) 10^3/uL RBC 3.47 L (4.18-5.48) 10^6 /uL Hgb 10.5 L (14.0-18.0) g/dL Hct 31 L (42-52) % MCV 90 (80-94) fL MCH 30 (27-31) pg MCHC 34 (31-36) g/dL RDW 14 (10-15) % Plt Count 520 H (150-450) 10^3/uL MPV 7.1 L (7.4-10.4) fL Neut % (Auto) 83.6 % Lymph % (Auto) 7.6 % [place] % (Auto) 6.3 % Eos % (Auto) 1.9 % Baso % (Auto) 0.6 % Absolute Neuts (auto) 13.1 H (1.5-7.7) 10^3/ul Absolute Lymphs (auto) 1.2 (1.0-4.8) 10^3/ul Absolute Monos (auto) 1.0 H (0-0.8) 10^3/ul Absolute Eos (auto) 0.3 (0-0.6) 10^3/ul Absolute Basos (auto) 0.1 (0-0.2) 10^3/ul Absolute Nucleated RBC 0.0 10^3/ul Nucleated RBC % 0.0 Assess/Plan/Problems-Billing Assessment: 58 y/o M with h/o HTN, Obesity(s/p sleeve gastrectomy), T2dM, recent h/o fall and treatment of lung infiltrate with 7 day augmentin presented with productive cough, chest discomfort, fever with chills and rigor, 30 lb weight loss. found to have sepsis and mass like consolidation on right lower lung suggestive of abscess>malignancy. On zosyn. US guided biopsy on saturday. Left ankle pain with normal xray and normal venous doppler. - Patient Problems (1) Sepsis Current Visit: Yes Status: Acute Comment: Secondary to suspected right lung abscess. VITALS stable at present. Lactic acid normal. has productive cough, fever with chills and rigor, sweats, weight loss. Ct shows mass like consolidation. Could be infection like abscess or malignancy. He is on IV zosyn. plan is to do us guided lung biopsy(on saturday). Withold aspirin, ibuprofen. should be npo on saturday from midnight and heparin should be put on hold. Pulmonology following. (2) Anemia Current Visit: Yes Status: Acute Code(s): D64.9 - ANEMIA, UNSPECIFIED SNOMED Code(s): 686645770 Comment: Has normocytic anemia. Low iron-EAMON (3) Left lateral ankle pain Current Visit: Yes Status: Acute Code(s): M25.572 - PAIN IN LEFT ANKLE AND JOINTS OF LEFT FOOT SNOMED Code(s): 463405992 Comment: pain for 10 days. oain and tenderness decreased today Xray didnot show any osseous abnormality. doppler normal has tenderness. no redness noted. on acetaminophen prn will consult ortho (4) Diabetes Current Visit: Yes Status: Acute Code(s): E11.9 - TYPE 2 DIABETES MELLITUS WITHOUT COMPLICATIONS SNOMED Code(s): 62658227 Comment: was not on medication as his diabetes resolved after bariatic surgery. His HbA1c now is 6.8; which confirms diabetes. on insulin ss. (5) HTN (hypertension) Current Visit: Yes Status: Acute Code(s): I10 - ESSENTIAL (PRIMARY) HYPERTENSION SNOMED Code(s): 61255997 Comment: BP on softer side. so his home antihypertensive is put on hold. (6) Depression Current Visit: Yes Status: Acute Code(s): F32.9 - MAJOR DEPRESSIVE DISORDER , SINGLE EPISODE, UNSPECIFIED SNOMED Code(s): 00375475 Comment: on paroxetine and zolpidem (7) GERD (gastroesophageal reflux disease) Current Visit: Yes Status: Acute Code(s): K21.9 - GASTRO-ESOPHAGEAL REFLUX DISEASE WITHOUT ESOPHAGITIS SNOMED Code(s): 054434299 Comment: on pantoprazole (8) DVT prophylaxis Current Visit: Yes Status: Acute Code(s): Z29.9 - ENCOUNTER FOR PROPHYLACTIC MEASURES, UNSPECIFIED SNOMED Code(s): 160264327 Comment: on heparin (9) Full code status Current Visit: Yes Status: Acute Code(s): Z78.9 - OTHER SPECIFIED HEALTH STATUS SNOMED Code(s): 876497193 Status and Disposition: Inpatient Attending: Claudia Paul Attestation Documenting Resident: Malika Norris Supervising Physician: Claudia Paul Attestation: This service has been performed in part by a resident under the direction of a teaching physician.I, Claudia Paul, performed the service, or was physically present during the critical, or miles portions of the service, furnished by the resident. I participated in the management of the patient.
[2019-05-16 07:53] LABS: ABS Basophils 0.1 10^3/ul (0-0.2); ABS Eosinophils 0.7 10^3/ul (0-0.6); ABS Lymphocytes 1.1 10^3/ul (1.0-4.8); ABS Monocytes 0.6 10^3/ul (0-0.8); ABS Neutrophils 6.7 10^3/ul (1.5-7.7); Eosinophil % 7.1 %; Hematocrit 27 % (42-52); Hemoglobin 9.4 g/dL (14.0-18.0); Lymphocyte % 12.4 %; Mean Corpuscular HGB Conc 34 g/dL (31-36); Mean Corpuscular Hemoglobin 31 pg (27-31); Mean Corpuscular Volume 90 fL (80-94); Mean Platelet Volume 7.8 fL (7.4-10.4); Platelet Count 393 10^3/uL (150-450); Red Blood Count 3.05 10^6 /uL (4.18-5.48); Red Cell Distribution Width 14 % (10-15); White Blood Count 9.3 10^3/uL (3.5-10.8)
[2019-05-16 08:16] LABS: Calcium 8.3 mg/dL (8.6-10.3); Potassium 4.3 mmol/L (3.5-5.0)
[2019-05-16 08:22] LABS: BUN/Creatinine Ratio 10.5 (8-20); EGFR African American 72.7 (>60); EGFR Non-African American 60.1 (>60)
[2019-05-16] MEDS: NS 0.9% 1000 ML** 1,000 ML IV SCH (10:47)
[2019-05-16] MEDS: Insulin LISPRO* 1 UNITS UNIT SUBCUT SCH ×4 (10:48→21:32)
[2019-05-16] MEDS: Multivitamins/Minerals TAB PO SCH (10:48)
[2019-05-16] MEDS: Pantoprazole TAB * 40 MG TAB PO SCH (10:48)
[2019-05-16] MEDS: Acetaminophen TAB* 325 MG PO PRN ×2 (15:26→21:23)
[2019-05-16] MEDS: traMADol TAB* 50 MG PO PRN (18:31)
[2019-05-16] MEDS: Zolpidem TAB* 10 MG PO PRN (21:23)
[2019-05-16] MEDS: PARoxetine HCL TAB* 20 MG PO SCH (21:23)
[2019-05-17] MEDS: Piperacillin/Tazobac ADVAN(*) 3.375 GM in NS 0.9% 100 ML* 100 ML IVPB SCH ×3 (02:43→18:17)
[2019-05-17] MEDS: Acetaminophen TAB* 325 MG PO PRN ×2 (03:17→18:17)
[2019-05-17] MEDS: Heparin VIAL(*) 5000 UNITS/ML VIAL (FIVE THOUSAND) SUBCUT SCH ×3 (05:54→21:11)
[2019-05-17 06:40] LABS: ABS Basophils 0.1 10^3/ul (0-0.2); ABS Eosinophils 0.8 10^3/ul (0-0.6); ABS Lymphocytes 1.4 10^3/ul (1.0-4.8); ABS Monocytes 0.6 10^3/ul (0-0.8); ABS Neutrophils 4.9 10^3/ul (1.5-7.7); Eosinophil % 10.7 %; Hematocrit 26 % (42-52); Hemoglobin 8.9 g/dL (14.0-18.0); Lymphocyte % 18.5 %; Mean Corpuscular HGB Conc 35 g/dL (31-36); Mean Corpuscular Hemoglobin 31 pg (27-31); Mean Corpuscular Volume 89 fL (80-94); Platelet Count 414 10^3/uL (150-450); Red Blood Count 2.87 10^6 /uL (4.18-5.48); Red Cell Distribution Width 14 % (10-15); White Blood Count 7.8 10^3/uL (3.5-10.8)
[2019-05-17 06:54] LABS: BUN/Creatinine Ratio 12.6 (8-20); Calcium 8.4 mg/dL (8.6-10.3); EGFR African American 90.1 (>60); EGFR Non-African American 74.4 (>60); Potassium 4.1 mmol/L (3.5-5.0)
--- NOTE | 2019-05-17 07:56 | PN ---
Subjective Date of Service: 05/17/19 Interval History: HD 3 on 05/17 58 M PMH HTN, s/p sleeve gastrectomy, NIDDM, recent h/o subacute cough, fevers chills all starting after a mechanical fall in mid April, also endorses 30lb weight loss in one month 2/2 to poor PO intake. Tx as outpt for CAP, admitted to hospital with R lung mass vs abscess pleural based with some effusion. Presented with sepsis, improving on tx, awaiting bx to r/o oncologic process. Interim Hx Overnight no acute events, VSS Labs: Anemia Hg 8.9 This morning, still having c/o foot pain (L), cough getting better, anxious in general about procedure etc, no other complaints or issues. Objective Active Medications: Acetaminophen (Tylenol Tab*) 650 mg PO Q6H PRN PRN Reason: PAIN-MILD/TEMP >/= 100.4 Last Admin: 05/17/19 03:17 Dose: 650 mg Dextrose (Dextrose 50% Vial 50 Ml*) 25 ml IV PUSH .FOR FS < 60 - SS PRN PRN Reason: FS < 60 Heparin Sodium (Porcine) (Heparin Vial(*)) 5,000 units SUBCUT Q8HR [facility] Stop: 05/18/19 04:00 Last Admin: 05/17/19 05:54 Dose: 5,000 units Piperacillin Sod/Tazobactam (Sod 3.375 gm/ Sodium Chloride) 100 mls @ 25 mls/ hr IVPB Q8H [facility] Last Admin: 05/17/19 02:43 Dose: 25 mls/hr Sodium Chloride (Ns 0.9% 1000 Ml) 1,000 mls @ 100 mls/hr IV PER RATE [facility] Stop: 05/17/19 09:00 Last Admin: 05/16/19 10:47 Dose: 100 mls/hr Insulin Human Lispro (Humalog*) 0 units SUBCUT ACHS [facility]; Protocol Last Admin: 05/16/19 21:32 Dose: 2 units Multivitamins/Minerals (Theragran/Minerals Tab*) 1 tab PO DAILY [facility] Last Admin: 05/16/19 10:48 Dose: 1 tab Pantoprazole Sodium (Protonix Tab*) 40 mg PO QAM [facility] Last Admin: 05/16/19 10:48 Dose: 40 mg Paroxetine HCl (Paxil Tab*) 20 mg PO BEDTIME [facility] Last Admin: 05/16/19 21:23 Dose: 20 mg Pharmacy Consult (Zosyn Per Pharmacy*) 1 note FOLLOW UP .ZOSYN PER PHARMACY [facility] Tramadol HCl (Ultram*) 50 mg PO Q12H PRN PRN Reason: PAIN - MODERATE Last Admin: 05/16/19 18:31 Dose: 50 mg Zolpidem Tartrate (Ambien Tab*) 10 mg PO BEDTIME PRN PRN Reason: SLEEP Last Admin: 05/16/19 21:23 Dose: 10 mg Vital Signs - 8 hr 05/17/19 02:30 Temperature 98.3 F Pulse Rate 55 Respiratory 24 Rate Blood Pressure 125/71 (mmHg) O2 Sat by Pulse 99 Oximetry Oxygen Devices in Use Now: None Appearance: Very pleasant man in NAD Eyes: No Scleral Icterus, PERRLA Ears/Nose/Mouth/Throat: NL Teeth, Lips, Gums, Mucous Membranes Moist Neck: NL Appearance and Movements; NL JVP, Trachea Midline Respiratory: Symmetrical Chest Expansion and Respiratory Effort, - - Crackles in RLL Cardiovascular: NL Sounds; No Murmurs; No JVD, RRR Abdominal: NL Sounds; No Tenderness; No Distention, No Hepatosplenomegaly Lymphatic: No Cervical Adenopathy Extremities: No Edema, - - L extender on anterior aspect swollen Skin: No Rash or Ulcers Neurological: Alert and Oriented x 3 Result Diagrams: 05/17/19 06:18 05/17/19 06:18 Additional Lab and Data: Microbiology and Other Data: Microbiology 05/14/19 23:54 Aerobic Blood Culture - Preliminary Blood Venous No Growth Day 2 Anaerobic Blood Culture - Preliminary No Growth Day 2 05/14/19 21:28 Aerobic Blood Culture - Preliminary Blood Venous No Growth Day 2 Anaerobic Blood Culture - Preliminary No Growth Day 2 Diagnostic Imagin/15: RLL mass like consolidation Assess/Plan/Problems-Billing Assessment: 58 M PMH HTN, s/p sleeve gastrectomy, NIDDM, recent h/o subacute cough, fevers chills all starting after a mechanical fall in mid April, also endorses 30lb weight loss in one month /2 to poor PO intake. Tx as outpt for CAP, admitted to hospital with R lung mass vs abscess pleural based with some effusion. Presented with sepsis, improving on tx, awaiting bx to r/o oncologic process. - Patient Problems (1) Sepsis Current Visit: Yes Status: Acute Comment: - Resolved. Secondary to suspected right lung abscess. - Culture data unrevaling, awaiting lung bx, continue pip/tazo (2) Lung abscess Current Visit: Yes Status: Acute Code(s): J85.2 - ABSCESS OF LUNG WITHOUT PNEUMONIA SNOMED Code(s): 52205432 Comment: - Empiric treatment for lung abscess is Zosyn, continue day 3 on 05/17 (3) Anemia Current Visit: Yes Status: Acute Code(s): D64.9 - ANEMIA, UNSPECIFIED SNOMED Code(s): 051943823 Comment: - Has normocytic anemia with low iron, c/w EAMON - Slowly drifting watch for dilutional (4) Left lateral ankle pain Current Visit: Yes Status: Acute Code(s): M25.572 - PAIN IN LEFT ANKLE AND JOINTS OF LEFT FOOT SNOMED Code(s): 339685761 Comment: - Improving, imaging for clot fracture neg, assume soft tissue 2/2 to [facility] fall - Toradol and Tramadol PRN for pain (toradol will not affect bx) - Ortho consult in (5) Diabetes Current Visit: Yes Status: Acute Code(s): E11.9 - TYPE 2 DIABETES MELLITUS WITHOUT COMPLICATIONS SNOMED Code(s): 66663513 Comment: - A1C 6.8, SSI while here in hospital (6) HTN (hypertension) Current Visit: Yes Status: Acute Code(s): I10 - ESSENTIAL (PRIMARY) HYPERTENSION SNOMED Code(s): 05704917 Comment: - Holding home anti-HTN, improving pressure today - Restart Losartan 50mg 05/17 (7) Depression Current Visit: Yes Status: Acute Code(s): F32.9 - MAJOR DEPRESSIVE DISORDER , SINGLE EPISODE, UNSPECIFIED SNOMED Code(s): 73686501 Comment: - Paroxetine and zolpidem (8) GERD (gastroesophageal reflux disease) Current Visit: Yes Status: Acute Code(s): K21.9 - GASTRO-ESOPHAGEAL REFLUX DISEASE WITHOUT ESOPHAGITIS SNOMED Code(s): 892704752 Comment: - PPI (9) DVT prophylaxis Current Visit: Yes Status: Acute Code(s): Z29.9 - ENCOUNTER FOR PROPHYLACTIC MEASURES, UNSPECIFIED SNOMED Code(s): 096176892 Comment: - SQH, hold for bx (10) Full code status Current Visit: Yes Status: Acute Code(s): Z78.9 - OTHER SPECIFIED HEALTH STATUS SNOMED Code(s): 211792877 Status and Disposition: Inpatient, awaiting bx results to target tx
[2019-05-17] MEDS: Insulin LISPRO* 1 UNITS UNIT SUBCUT SCH ×4 (09:30→21:04)
[2019-05-17] MEDS: Multivitamins/Minerals TAB PO SCH (09:31)
[2019-05-17] MEDS: Pantoprazole TAB * 40 MG TAB PO SCH (09:31)
[2019-05-17] MEDS: Ketorolac INJ* 15 MG/ML 1 ML VIAL IV PUSH PRN ×2 (14:50→23:59)
[2019-05-17] MEDS: traMADol TAB* 50 MG PO PRN (19:43)
[2019-05-17] MEDS: Zolpidem TAB* 10 MG PO PRN (21:04)
[2019-05-17] MEDS: PARoxetine HCL TAB* 20 MG PO SCH (21:04)
[2019-05-18] MEDS: Piperacillin/Tazobac ADVAN(*) 3.375 GM in NS 0.9% 100 ML* 100 ML IVPB SCH ×3 (02:55→18:34)
[2019-05-18] MEDS ORDERED: Benzonatate CAP* 100 MG PO PRN (03:15)
[2019-05-18] MEDS: guaiFENesin ER TAB 600 MG PO SCH ×2 (04:59→21:25)
[2019-05-18 05:18] LABS: ABS Basophils 0.1 10^3/ul (0-0.2); ABS Eosinophils 0.9 10^3/ul (0-0.6); ABS Lymphocytes 1.5 10^3/ul (1.0-4.8); ABS Monocytes 0.6 10^3/ul (0-0.8); Eosinophil % 11.8 %; Hematocrit 27 % (42-52); Hemoglobin 9.2 g/dL (14.0-18.0); Lymphocyte % 18.2 %; Mean Corpuscular HGB Conc 34 g/dL (31-36); Mean Corpuscular Hemoglobin 30 pg (27-31); Mean Corpuscular Volume 89 fL (80-94); Mean Platelet Volume 6.8 fL (7.4-10.4); Platelet Count 410 10^3/uL (150-450); Red Blood Count 3.03 10^6 /uL (4.18-5.48); Red Cell Distribution Width 14 % (10-15)
[2019-05-18 05:37] LABS: Anion Gap 4 mmol/L (2-11); BUN/Creatinine Ratio 12.1 (8-20); Blood Urea Nitrogen 14 mg/dL (6-24); CO2 Carbon Dioxide 31 mmol/L (22-32); Calcium 8.3 mg/dL (8.6-10.3); Chloride 109 mmol/L (101-111); EGFR African American 78.5 (>60); EGFR Non-African American 64.9 (>60); Glucose 111 mg/dL (70-100); Potassium 4.5 mmol/L (3.5-5.0); Sodium 144 mmol/L (135-145)
--- NOTE | 2019-05-18 07:07 | PN ---
Subjective Date of Service: 05/18/19 Interval History: HD 4 on 05/18 58 M PMH HTN, s/p sleeve gastrectomy, NIDDM, recent h/o subacute cough, fevers chills all starting after a mechanical fall in mid April, also endorses 30lb weight loss in one month 2/2 to poor PO intake. Tx as outpt for CAP, admitted to hospital with R lung mass vs abscess pleural based with some effusion. Presented with sepsis, improving on tx, awaiting bx to r/o oncologic process. Overnight: HAs left foot pain. VSS No any complaint at present. doing well. Planned for biopsy today. Could not have biopsy today as IR was overloaded. plan is to do biopsy tomorrow. Objective Active Medications: Acetaminophen (Tylenol Tab*) 650 mg PO Q6H PRN PRN Reason: PAIN-MILD/TEMP >/= 100.4 Last Admin: 05/17/19 18:17 Dose: 650 mg Benzonatate (Tessalon Cap*) 100 mg PO BID PRN PRN Reason: COUGH Last Admin: 05/18/19 03:38 Dose: 100 mg Dextrose (Dextrose 50% Vial 50 Ml*) 25 ml IV PUSH .FOR FS < 60 - SS PRN PRN Reason: FS < 60 Guaifenesin (Mucinex*) 600 mg PO BID [facility] Last Admin: 05/18/19 04:59 Dose: Not Given Piperacillin Sod/Tazobactam (Sod 3.375 gm/ Sodium Chloride) 100 mls @ 25 mls/ hr IVPB Q8H [facility] Last Admin: 05/18/19 02:55 Dose: 25 mls/hr Insulin Human Lispro (Humalog*) 0 units SUBCUT ACHS [facility]; Protocol Last Admin: 05/17/19 21:04 Dose: 3 units Ketorolac Tromethamine (Toradol Inj*) 15 mg IV PUSH Q6H PRN PRN Reason: PAIN - MILD Last Admin: 05/17/19 23:59 Dose: 15 mg Losartan Potassium (Cozaar Tab*) 50 mg PO DAILY [facility] Multivitamins/Minerals (Theragran/Minerals Tab*) 1 tab PO DAILY [facility] Last Admin: 05/17/19 09:31 Dose: 1 tab Pantoprazole Sodium (Protonix Tab*) 40 mg PO QAM [facility] Last Admin: 05/17/19 09:31 Dose: 40 mg Paroxetine HCl (Paxil Tab*) 20 mg PO BEDTIME [facility] Last Admin: 05/17/19 21:04 Dose: 20 mg Pharmacy Consult (Zosyn Per Pharmacy*) 1 note FOLLOW UP .ZOSYN PER PHARMACY [facility] Tramadol HCl (Ultram*) 50 mg PO Q12H PRN PRN Reason: PAIN - MODERATE Last Admin: 05/17/19 19:43 Dose: 50 mg Zolpidem Tartrate (Ambien Tab*) 10 mg PO BEDTIME PRN PRN Reason: SLEEP Last Admin: 05/17/19 21:04 Dose: 10 mg Vital Signs - 8 hr 05/17/19 05/18/19 05/18/19 23:33 00:09 03:16 Temperature 97.8 F 97.9 F Pulse Rate 59 56 Respiratory 24 18 18 Rate Blood Pressure 127/83 139/70 (mmHg) O2 Sat by Pulse 91 98 Oximetry Oxygen Devices in Use Now: None Exam: Patient is lying on a bed with no any acute distress. HEENT: Normocephalic and atraumatic Lung: Decreased breath sound on right lower base with some crackles Heart: normal heart sound heard with no murmur. Abdomen: Soft, nondistended and nontender. Normal BS heard. Extremity: Tenderness on left ankle joint with decreased range of motion. Neuro: Alert, conscious and Coperative. Moving all four extremity. Result Diagrams: 05/18/19 04:49 05/18/19 04:49 Additional Lab and Data: Microbiology and Other Data: Microbiology 05/14/19 23:54 Aerobic Blood Culture - Preliminary Blood Venous No Growth Day 2 Anaerobic Blood Culture - Preliminary No Growth Day 2 05/14/19 21:28 Aerobic Blood Culture - Preliminary Blood Venous No Growth Day 2 Anaerobic Blood Culture - Preliminary No Growth Day 2 Diagnostic Imagin/15: RLL mass like consolidation Assess/Plan/Problems-Billing Assessment: 58 M PMH HTN, s/p sleeve gastrectomy, NIDDM, recent h/o subacute cough, fevers chills all starting after a mechanical fall in mid April, also endorses 30lb weight loss in one month 2/2 to poor PO intake. Tx as outpt for CAP, admitted to hospital with R lung mass vs abscess pleural based with some effusion. Presented with sepsis, improving on tx, awaiting bx to r/o oncologic process. - Patient Problems (1) Sepsis Current Visit: Yes Status: Acute Comment: - Resolved. Secondary to suspected right lung abscess. - Culture data unrevealing, awaiting lung bx, continue pip/tazo - planned for biopsy tomorrow. -probable dc tm (2) Anemia Current Visit: Yes Status: Acute Code(s): D64.9 - ANEMIA, UNSPECIFIED SNOMED Code(s): 782553071 Comment: - Has normocytic anemia with low iron, c/w EAMON - Hb 9.2 wiith low iron, low TIBC and low transferrin which suggests anemia of chronic disease. his ferritin is normal. will have to repeat iron studies again after his infection sunsides. (3) Left lateral ankle pain Current Visit: Yes Status: Acute Code(s): M25.572 - PAIN IN LEFT ANKLE AND JOINTS OF LEFT FOOT SNOMED Code(s): 177259969 Comment: - Improving, imaging for clot fracture neg, assume soft tissue 2/2 to [facility] fall - Toradol and Tramadol PRN for pain (toradol will not affect bx) (4) Diabetes Current Visit: Yes Status: Acute Code(s): E11.9 - TYPE 2 DIABETES MELLITUS WITHOUT COMPLICATIONS SNOMED Code(s): 14403962 Comment: - A1C 6.8, SSI while here in hospital (5) HTN (hypertension) Current Visit: Yes Status: Acute Code(s): I10 - ESSENTIAL (PRIMARY) HYPERTENSION SNOMED Code(s): 84997919 Comment: - Holding home anti-HTN, improving pressure today - Restart Losartan 50mg 05/17 (6) Depression Current Visit: Yes Status: Acute Code(s): F32.9 - MAJOR DEPRESSIVE DISORDER , SINGLE EPISODE, UNSPECIFIED SNOMED Code(s): 13825189 Comment: - Paroxetine and zolpidem (7) GERD (gastroesophageal reflux disease) Current Visit: Yes Status: Acute Code(s): K21.9 - GASTRO-ESOPHAGEAL REFLUX DISEASE WITHOUT ESOPHAGITIS SNOMED Code(s): 881647811 Comment: - PPI (8) DVT prophylaxis Current Visit: Yes Status: Acute Code(s): Z29.9 - ENCOUNTER FOR PROPHYLACTIC MEASURES, UNSPECIFIED SNOMED Code(s): 821663705 Comment: - H, hold for bx (9) Full code status Current Visit: Yes Status: Acute Code(s): Z78.9 - OTHER SPECIFIED HEALTH STATUS SNOMED Code(s): 684341397 Status and Disposition: Inpatient, awaiting bx results to target tx probable dc tomorrow Attending: Janel Pineda Attestation Documenting Resident: Malika Norris Supervising Physician: Janel Pineda Attestation: This service has been performed in part by a resident under the direction of a teaching physician.I, Janel Pineda, performed the service, or was physically present during the critical, or miles portions of the service, furnished by the resident. I participated in the management of the patient.
[2019-05-18] MEDS: Ketorolac INJ* 15 MG/ML 1 ML VIAL IV PUSH PRN (07:44)
[2019-05-18] MEDS: Insulin LISPRO* 1 UNITS UNIT SUBCUT SCH ×4 (08:51→21:39)
[2019-05-18] MEDS: Losartan TAB* 25 MG PO SCH (08:52)
[2019-05-18] MEDS: Multivitamins/Minerals TAB PO SCH (08:52)
[2019-05-18] MEDS: Pantoprazole TAB * 40 MG TAB PO SCH (08:52)
[2019-05-18 12:52] LABS: % Iron Saturation 20 % (15-55); Iron 44 ug/dL (50-212); Total Iron Binding Capacity 223 mcg/dL (250-450); Transferrin 159 mg/dL (203-362)
[2019-05-18 13:12] LABS: Ferritin 218.8 ng/mL (24-336)
[2019-05-18] MEDS: Acetaminophen TAB* 325 MG PO PRN (14:30)
[2019-05-18] MEDS: PARoxetine HCL TAB* 20 MG PO SCH (21:24)
[2019-05-18] MEDS: Zolpidem TAB* 10 MG PO PRN (21:25)
[2019-05-19] MEDS: Piperacillin/Tazobac ADVAN(*) 3.375 GM in NS 0.9% 100 ML* 100 ML IVPB SCH ×3 (02:52→18:18)
[2019-05-19] MEDS: traMADol TAB* 50 MG PO PRN ×2 (05:57→17:38)
[2019-05-19 06:06] LABS: ABS Basophils 0.1 10^3/ul (0-0.2); ABS Eosinophils 0.8 10^3/ul (0-0.6); ABS Lymphocytes 1.2 10^3/ul (1.0-4.8); ABS Monocytes 0.7 10^3/ul (0-0.8); ABS Neutrophils 6.1 10^3/ul (1.5-7.7); Eosinophil % 8.5 %; Hematocrit 28 % (42-52); Hemoglobin 9.6 g/dL (14.0-18.0); Lymphocyte % 13.8 %; Mean Corpuscular HGB Conc 35 g/dL (31-36); Mean Corpuscular Hemoglobin 31 pg (27-31); Mean Corpuscular Volume 88 fL (80-94); Mean Platelet Volume 6.7 fL (7.4-10.4); Platelet Count 422 10^3/uL (150-450); Red Blood Count 3.15 10^6 /uL (4.18-5.48); Red Cell Distribution Width 14 % (10-15); White Blood Count 8.9 10^3/uL (3.5-10.8)
[2019-05-19 06:27] LABS: BUN/Creatinine Ratio 11.4 (8-20); Calcium 8.6 mg/dL (8.6-10.3); EGFR African American 88.1 (>60); EGFR Non-African American 72.8 (>60); Potassium 4.3 mmol/L (3.5-5.0)
--- NOTE | 2019-05-19 06:45 | PN ---
Subjective Date of Service: 05/19/19 Interval History: HD 5 on 05/19 58 M PMH HTN, s/p sleeve gastrectomy, NIDDM, recent h/o subacute cough, fevers chills all starting after a mechanical fall in mid April, also endorses 30lb weight loss in one month 2/2 to poor PO intake. Tx as outpt for CAP, admitted to hospital with R lung mass vs abscess pleural based with some effusion. Presented with sepsis, improving on tx, awaiting bx to r/o oncologic process. NO acute overnight events VS stable Anemic-9.6 No complain at present. Underwent lung biopsy today Objective Active Medications: Acetaminophen (Tylenol Tab*) 650 mg PO Q6H PRN PRN Reason: PAIN-MILD/TEMP >/= 100.4 Last Admin: 05/18/19 14:30 Dose: 650 mg Benzonatate (Tessalon Cap*) 100 mg PO BID PRN PRN Reason: COUGH Last Admin: 05/18/19 03:38 Dose: 100 mg Dextrose (Dextrose 50% Vial 50 Ml*) 25 ml IV PUSH .FOR FS < 60 - SS PRN PRN Reason: FS < 60 Guaifenesin (Mucinex*) 600 mg PO BID [facility] Last Admin: 05/18/19 21:25 Dose: 600 mg Piperacillin Sod/Tazobactam (Sod 3.375 gm/ Sodium Chloride) 100 mls @ 25 mls/ hr IVPB Q8H [facility] Last Admin: 05/19/19 02:52 Dose: 25 mls/hr Insulin Human Lispro (Humalog*) 0 units SUBCUT ACHS [facility]; Protocol Last Admin: 05/18/19 21:39 Dose: Not Given Losartan Potassium (Cozaar Tab*) 50 mg PO DAILY [facility] Last Admin: 05/18/19 08:52 Dose: Not Given Multivitamins/Minerals (Theragran/Minerals Tab*) 1 tab PO DAILY [facility] Last Admin: 05/18/19 08:52 Dose: Not Given Pantoprazole Sodium (Protonix Tab*) 40 mg PO QAM [facility] Last Admin: 05/18/19 08:52 Dose: Not Given Paroxetine HCl (Paxil Tab*) 20 mg PO BEDTIME [facility] Last Admin: 05/18/19 21:24 Dose: 20 mg Pharmacy Consult (Zosyn Per Pharmacy*) 1 note FOLLOW UP .ZOSYN PER PHARMACY [facility] Tramadol HCl (Ultram*) 50 mg PO Q12H PRN PRN Reason: PAIN - MODERATE Last Admin: 05/19/19 05:57 Dose: 50 mg Zolpidem Tartrate (Ambien Tab*) 10 mg PO BEDTIME PRN PRN Reason: SLEEP Last Admin: 05/18/19 21:25 Dose: 10 mg Vital Signs - 8 hr 05/18/19 05/19/19 05/19/19 23:53 04:13 05:57 Temperature 97.4 F 97.6 F Pulse Rate 67 59 Respiratory 18 19 20 Rate Blood Pressure 142/65 148/75 (mmHg) O2 Sat by Pulse 98 98 Oximetry Oxygen Devices in Use Now: None Exam: Patient is lying on a bed with no any acute distress. HEENT: Normocephalic and atraumatic Lung: Decreased breath sound on right lower base with some crackles Heart: normal heart sound heard with no murmur. Abdomen: Soft, nondistended and nontender. Normal BS heard. Extremity: Mild Tenderness on left ankle joint with decreased range of motion. Neuro: Alert, conscious and Coperative. Moving all four extremity. Result Diagrams: 05/20/19 05:07 05/19/19 05:45 Additional Lab and Data: Microbiology and Other Data: Microbiology 05/14/19 23:54 Aerobic Blood Culture - Preliminary Blood Venous No Growth Day 2 Anaerobic Blood Culture - Preliminary No Growth Day 2 05/14/19 21:28 Aerobic Blood Culture - Preliminary Blood Venous No Growth Day 2 Anaerobic Blood Culture - Preliminary No Growth Day 2 Diagnostic Imagin/15: RLL mass like consolidation Assess/Plan/Problems-Billing Assessment: 58 M PMH HTN, s/p sleeve gastrectomy, NIDDM, recent h/o subacute cough, fevers chills all starting after a mechanical fall in mid April, also endorses 30lb weight loss in one month 2/2 to poor PO intake. Tx as outpt for CAP, admitted to hospital with R lung mass vs abscess pleural based with some effusion. Presented with sepsis, improving on tx, bx done on 05/19;awaiting results - Patient Problems (1) Sepsis Current Visit: Yes Status: Acute Comment: - Resolved. Secondary to suspected right lung abscess. - Culture data unrevealing, continue pip/tazo - biopsy done; awaiting result -ID consulted; will require atleast 3 weeks of abx (2) Anemia Current Visit: Yes Status: Acute Code(s): D64.9 - ANEMIA, UNSPECIFIED SNOMED Code(s): 949266239 Comment: - Has normocytic anemia with low iron, c/w EAMON - Hb 9.6 wiith low iron, low TIBC and low transferrin which suggests anemia of chronic disease. his ferritin is normal. will have to repeat iron studies again after his infection subsides. (3) Left lateral ankle pain Current Visit: Yes Status: Acute Code(s): M25.572 - PAIN IN LEFT ANKLE AND JOINTS OF LEFT FOOT SNOMED Code(s): 904356577 Comment: - Improving, imaging for clot fracture neg, assume soft tissue 2/2 to [facility] fall - Toradol and Tramadol PRN for pain (4) Diabetes Current Visit: Yes Status: Acute Code(s): E11.9 - TYPE 2 DIABETES MELLITUS WITHOUT COMPLICATIONS SNOMED Code(s): 10977135 Comment: - A1C 6.8, SSI while here in hospital (5) HTN (hypertension) Current Visit: Yes Status: Acute Code(s): I10 - ESSENTIAL (PRIMARY) HYPERTENSION SNOMED Code(s): 47982569 Comment: - Holding home anti-HTN, improving pressure today - Restart Losartan 50mg 05/17 (6) Depression Current Visit: Yes Status: Acute Code(s): F32.9 - MAJOR DEPRESSIVE DISORDER , SINGLE EPISODE, UNSPECIFIED SNOMED Code(s): 87311355 Comment: - Paroxetine and zolpidem (7) GERD (gastroesophageal reflux disease) Current Visit: Yes Status: Acute Code(s): K21.9 - GASTRO-ESOPHAGEAL REFLUX DISEASE WITHOUT ESOPHAGITIS SNOMED Code(s): 327649746 Comment: - PPI (8) DVT prophylaxis Current Visit: Yes Status: Acute Code(s): Z29.9 - ENCOUNTER FOR PROPHYLACTIC MEASURES, UNSPECIFIED SNOMED Code(s): 139221483 Comment: - SC heparin (9) Full code status Current Visit: Yes Status: Acute Code(s): Z78.9 - OTHER SPECIFIED HEALTH STATUS SNOMED Code(s): 208267557 Status and Disposition: Inpatient, awaiting bx results to target tx probable dc tomorrow Attending: Janel Pineda Attestation Documenting Resident: Malika Norris Supervising Physician: Janel Pineda Attending/Supervising Physician Comment: Pending gram stain and preliminary cultures from lung biopsy. ID to see tomorrow for abx selection, then DC home. Attestation: This service has been performed in part by a resident under the direction of a teaching physician.I, Janel Pineda, performed the service, or was physically present during the critical, or miles portions of the service, furnished by the resident. I participated in the management of the patient.
[2019-05-19] MEDS: Losartan TAB* 25 MG PO SCH (07:58)
[2019-05-19] MEDS: Multivitamins/Minerals TAB PO SCH (07:58)
[2019-05-19] MEDS: Pantoprazole TAB * 40 MG TAB PO SCH (07:58)
[2019-05-19] MEDS: Insulin LISPRO* 1 UNITS UNIT SUBCUT SCH ×4 (07:59→21:19)
[2019-05-19] MEDS: guaiFENesin ER TAB 600 MG PO SCH ×2 (07:59→21:18)
[2019-05-19] MEDS ORDERED: fentaNYL* 50 MCG/ML 2 ML VIAL (100 MCG VIAL) ONE (10:23)
[2019-05-19] MEDS ORDERED: Naloxone* 0.4 MG/ML 1 ML VIAL ONE (10:23)
[2019-05-19] MEDS ORDERED: Ondansetron INJ* 2 MG/ML VIAL ONE (11:01)
[2019-05-19] MEDS: Acetaminophen TAB* 325 MG PO PRN ×2 (12:05→19:56)
[2019-05-19] MEDS: PARoxetine HCL TAB* 20 MG PO SCH (21:18)
[2019-05-19] MEDS: Zolpidem TAB* 10 MG PO PRN (21:18)
[2019-05-20] MEDS: Piperacillin/Tazobac ADVAN(*) 3.375 GM in NS 0.9% 100 ML* 100 ML IVPB SCH ×3 (02:36→18:22)
[2019-05-20 06:36] LABS: ABS Basophils 0.1 10^3/ul (0-0.2); ABS Eosinophils 0.8 10^3/ul (0-0.6); ABS Lymphocytes 1.5 10^3/ul (1.0-4.8); ABS Monocytes 0.7 10^3/ul (0-0.8); ABS Neutrophils 5.2 10^3/ul (1.5-7.7); Eosinophil % 9.5 %; Hematocrit 27 % (42-52); Hemoglobin 9.2 g/dL (14.0-18.0); Mean Corpuscular HGB Conc 35 g/dL (31-36); Mean Corpuscular Hemoglobin 31 pg (27-31); Mean Corpuscular Volume 89 fL (80-94); Platelet Count 401 10^3/uL (150-450); Red Blood Count 2.98 10^6 /uL (4.18-5.48); Red Cell Distribution Width 14 % (10-15); White Blood Count 8.3 10^3/uL (3.5-10.8)
--- NOTE | 2019-05-20 06:39 | PN ---
Subjective Date of Service: 05/20/19 Interval History: HD 6 on 05/20 58 M PMH HTN, s/p sleeve gastrectomy, NIDDM, recent h/o subacute cough, fevers chills all starting after a mechanical fall in mid April, also endorses 30lb weight loss in one month 2/2 to poor PO intake. Tx as outpt for CAP, admitted to hospital with R lung mass vs abscess pleural based with some effusion. Presented with sepsis, improving on tx, awaiting bx result to r/o oncologic process. NO acute overnight events VS stable No complaint at present. Objective Active Medications: Acetaminophen (Tylenol Tab*) 650 mg PO Q6H PRN PRN Reason: PAIN-MILD/TEMP >/= 100.4 Last Admin: 05/19/19 19:56 Dose: 650 mg Benzonatate (Tessalon Cap*) 100 mg PO BID PRN PRN Reason: COUGH Last Admin: 05/18/19 03:38 Dose: 100 mg Dextrose (Dextrose 50% Vial 50 Ml*) 25 ml IV PUSH .FOR FS < 60 - SS PRN PRN Reason: FS < 60 Guaifenesin (Mucinex*) 600 mg PO BID [facility] Last Admin: 05/19/19 21:18 Dose: 600 mg Heparin Sodium (Porcine) (Heparin Vial(*)) 5,000 units SUBCUT Q8HR [facility] Piperacillin Sod/Tazobactam (Sod 3.375 gm/ Sodium Chloride) 100 mls @ 25 mls/ hr IVPB Q8H [facility] Last Admin: 05/20/19 02:36 Dose: 25 mls/hr Insulin Human Lispro (Humalog*) 0 units SUBCUT ACHS [facility]; Protocol Last Admin: 05/19/19 21:19 Dose: 1 units Losartan Potassium (Cozaar Tab*) 50 mg PO DAILY [facility] Last Admin: 05/19/19 07:58 Dose: 50 mg Multivitamins/Minerals (Theragran/Minerals Tab*) 1 tab PO DAILY [facility] Last Admin: 05/19/19 07:58 Dose: 1 tab Pantoprazole Sodium (Protonix Tab*) 40 mg PO QAM [facility] Last Admin: 05/19/19 07:58 Dose: 40 mg Paroxetine HCl (Paxil Tab*) 20 mg PO BEDTIME [facility] Last Admin: 05/19/19 21:18 Dose: 20 mg Pharmacy Consult (Zosyn Per Pharmacy*) 1 note FOLLOW UP .ZOSYN PER PHARMACY [facility] Tramadol HCl (Ultram*) 50 mg PO Q12H PRN PRN Reason: PAIN - MODERATE Last Admin: 05/19/19 17:38 Dose: 50 mg Zolpidem Tartrate (Ambien Tab*) 10 mg PO BEDTIME PRN PRN Reason: SLEEP Last Admin: 05/19/19 21:18 Dose: 10 mg Vital Signs - 8 hr 05/20/19 05/20/19 01:39 03:19 Temperature 98.6 F Pulse Rate 51 Respiratory 16 16 Rate Blood Pressure 133/75 (mmHg) O2 Sat by Pulse 97 Oximetry Oxygen Devices in Use Now: None Exam: Patient is lying on a bed with no any acute distress. HEENT: Normocephalic and atraumatic Lung: Decreased breath sound on right lower base Heart: normal heart sound heard with no murmur. Abdomen: Soft, nondistended and nontender. Normal BS heard. Extremity: Normal Neuro: Alert, conscious and Coperative. Moving all four extremity. Result Diagrams: 05/20/19 05:07 05/19/19 05:45 Additional Lab and Data: Microbiology and Other Data: Microbiology 05/14/19 23:54 Aerobic Blood Culture - Preliminary Blood Venous No Growth Day 2 Anaerobic Blood Culture - Preliminary No Growth Day 2 05/14/19 21:28 Aerobic Blood Culture - Preliminary Blood Venous No Growth Day 2 Anaerobic Blood Culture - Preliminary No Growth Day 2 Diagnostic Imagin/15: RLL mass like consolidation Assess/Plan/Problems-Billing Assessment: 58 M PMH HTN, s/p sleeve gastrectomy, NIDDM, recent h/o subacute cough, fevers chills all starting after a mechanical fall in mid April, also endorses 30lb weight loss in one month 10/04 to poor PO intake. Tx as outpt for CAP, admitted to hospital with R lung mass vs abscess pleural based with some effusion. Presented with sepsis, improving on tx, bx done on 05/19;awaiting results - Patient Problems (1) Sepsis Current Visit: Yes Status: Acute Comment: - Resolved. Secondary to suspected right lung abscess. - Culture data unrevealing, continue pip/tazo - biopsy done; awaiting result -ID consulted; will require atleast 1 month of abx (2) Anemia Current Visit: Yes Status: Acute Code(s): D64.9 - ANEMIA, UNSPECIFIED SNOMED Code(s): 355158659 Comment: - Has normocytic anemia with low iron, c/w EAMON - Hb 9.6 wiith low iron, low TIBC and low transferrin which suggests anemia of chronic disease. his ferritin is normal. will have to repeat iron studies again after his infection subsides. (3) Left lateral ankle pain Current Visit: Yes Status: Acute Code(s): M25.572 - PAIN IN LEFT ANKLE AND JOINTS OF LEFT FOOT SNOMED Code(s): 945589768 Comment: - Improving, imaging for clot fracture neg, assume soft tissue 2/2 to [facility] fall - Toradol and Tramadol PRN for pain (4) Diabetes Current Visit: Yes Status: Acute Code(s): E11.9 - TYPE 2 DIABETES MELLITUS WITHOUT COMPLICATIONS SNOMED Code(s): 59409242 Comment: - A1C 6.8, SSI while here in hospital (5) HTN (hypertension) Current Visit: Yes Status: Acute Code(s): I10 - ESSENTIAL (PRIMARY) HYPERTENSION SNOMED Code(s): 96320233 Comment: - Holding home anti-HTN, improving pressure today - Restart Losartan 50mg 05/17 (6) Depression Current Visit: Yes Status: Acute Code(s): F32.9 - MAJOR DEPRESSIVE DISORDER , SINGLE EPISODE, UNSPECIFIED SNOMED Code(s): 05898043 Comment: - Paroxetine and zolpidem (7) GERD (gastroesophageal reflux disease) Current Visit: Yes Status: Acute Code(s): K21.9 - GASTRO-ESOPHAGEAL REFLUX DISEASE WITHOUT ESOPHAGITIS SNOMED Code(s): 330449559 Comment: - PPI (8) DVT prophylaxis Current Visit: Yes Status: Acute Code(s): Z29.9 - ENCOUNTER FOR PROPHYLACTIC MEASURES, UNSPECIFIED SNOMED Code(s): 208275203 Comment: - SC heparin (9) Full code status Current Visit: Yes Status: Acute Code(s): Z78.9 - OTHER SPECIFIED HEALTH STATUS SNOMED Code(s): 798628794 Status and Disposition: Inpatient, awaiting bx results to target tx ID following Attending: Janel Pineda Attestation Documenting Resident: Malika Norris Supervising Physician: Janel Pineda Attestation: This service has been performed in part by a resident under the direction of a teaching physician.I, Janel Pineda, performed the service, or was physically present during the critical, or miles portions of the service, furnished by the resident. I participated in the management of the patient.
[2019-05-20] MEDS: traMADol TAB* 50 MG PO PRN ×2 (08:08→20:16)
[2019-05-20] MEDS: Insulin LISPRO* 1 UNITS UNIT SUBCUT SCH ×4 (08:09→20:23)
[2019-05-20] MEDS: Heparin VIAL(*) 5000 UNITS/ML VIAL (FIVE THOUSAND) SUBCUT SCH ×3 (08:10→20:18)
[2019-05-20] MEDS: Losartan TAB* 25 MG PO SCH (10:09)
[2019-05-20] MEDS: Pantoprazole TAB * 40 MG TAB PO SCH (10:09)
[2019-05-20] MEDS: Multivitamins/Minerals TAB PO SCH (10:10)
[2019-05-20] MEDS: guaiFENesin ER TAB 600 MG PO SCH ×2 (10:10→20:22)
--- NOTE | 2019-05-20 13:33 | CONS ---
CONSULTATION REPORT: DATE OF CONSULTATION: 05/20/19 PRIMARY CARE PROVIDER: Dr. Juan Miguel Denson. CONSULTING SERVICE: Infectious Disease. PHYSICIAN REQUESTING CONSULTATION: Dr. Betsy Newton. PROVIDER: Nacho Robertson NP ATTENDING PROVIDER: Dr. David Arzate.* (DICTATED BY NACHO ROBERTSON NP) IMPRESSION: Mass-like consolidation on chest imaging. Differential diagnosis includes bacterial pneumonia, lung abscess, and neoplasm. The patient had an ultrasound-guided lung biopsy yesterday that is still pending. He has a sputum culture and culture from that biopsy pending also at this time. Sputum culture with 4+ gram- positive cocci in chain resembling strep and 4 positive gram- negative coccobacilli, the lab had initially cancelled this specimen due to concern for contamination, they will work this up. Acid-fast bacilli smear negative. The patient has been on Zosyn during his hospitalization and feels like he is improving. His leukocytosis has resolved and has been afebrile. He continues to have thrombocytosis, an elevated CRP, and gram positive cocci in chains, I suspect this likely represents Strep pneumonia. PLAN: Recommend continuing Zosyn until the culture results and pathology are back. Once these are back, we can narrow his antibiotics. He will likely need a month of IV and p.o. antibiotics to cover possible abscess with followup imaging after treatment of his pneumonia. HISTORY OF PRESENT ILLNESS: Mr. Smith is a 58-year-old male with past medical history significant for hypertension, obesity, status post gastric sleeve in 2013, history of diabetes mellitus type 2, who states that for approximately 1 month he has been having fevers and chills with shortness of breath with rest and exertion. Additionally, he reports fatigue for 6 months, and drenching night sweats for 6 weeks. He reports diarrhea for approximately 1 month with loose stools 2 to 3 times daily since he was placed on a course of Augmentin. He denies any chest pain, joint pain, muscle pain, rash other than a chronic rash he reports in his groin post surgery due to excessive skin. Denies any urinary symptoms such as urgency, frequency, or dysuria. He reports having " low flow that has resolved." He had a fall around the end of April after tripping on an uneven sidewalk, this resulted in some bruised ribs. He was seen at urgent care on 04/30/19 with x-ray suggestive of atelectasis with possible consolidation in the right lung base. At that time, he was given the 7 -day course of Augmentin, lidocaine patches for the rib pain, and naproxen. The patient also reports approximately 30-pound weight loss and poor appetite over the last month to 6 weeks. He was seen at Dr. Denson's office for followup and was referred to the emergency room for further evaluation. While in the emergency room, he had leukocytosis with a white blood cell count of 12.4, temperature of 100.1, CRP of 145. He was anemic with a hemoglobin of 10.5. He had a chest x-ray showing a right lower lobe atelectasis with consolidation. He also had a chest, abdomen, and pelvis CT showing a mass-like consolidation with areas of central hypodensity in the posterior basal segment of the right lower lobe with adjacent pleural thickening and minimal pleural fluid which could represent a lung abscess, although neoplasm, an evolving infarct, and central obstructing lesions are in the differential. He was referred to the hospitalist service for admission. While in the hospital, his initial leukocytosis has resolved. He also had negative rapid influenza testing and blood cultures with no growth. He has been afebrile during his hospitalization with the exception of that low-grade fever on admission. He underwent an ultrasound-guided lung biopsy yesterday with results pending. He states that while in the hospital the fevers and chills are improving, the shortness of breath is much better. He continues to have 2 to 3 loose stools a day. He states that overall he is feeling much better. It is also to note that upon presentation to the hospital, he was having left ankle swelling, pain, and unable to bear weight. The left ankle pain and swelling is resolving, and he is able to bear weight and walk on it. PAST MEDICAL HISTORY: 1. Hypertension. 2. Anxiety and depression. 3. GERD. 4. Insomnia. 5. Morbid obesity, status post gastric sleeve. 6. Diabetes mellitus type 2. PAST SURGICAL HISTORY: 1. Status post gastric sleeve in 2012. 2. Status post hemorrhoidectomy x2. 3. Status post wisdom tooth extraction. 4. Status post umbilical hernia repair. MEDICATIONS: Home medications include: 1. Naproxen 220 mg by mouth every 4 hours as needed for pain. 2. Triamcinolone 0.025% apply topical twice daily as needed for rash. 3. Hydrochlorothiazide 25 mg by mouth daily. 4. Aspirin 81 mg by mouth daily. 5. Multivitamin 1 tablet by mouth daily. 6. Vitamin B12 injection 1000 mcg IM monthly. 7. Ambien 12.5 mg by mouth at bedtime as needed for sleep. 8. Paxil 20 mg by mouth daily at bedtime. 9. Omeprazole 20 mg by mouth every morning. 10. Losartan 50 mg by mouth daily. Hospital medications: 1. Acetaminophen 650 mg by mouth every 6 hours as needed for fever or pain. 2. Tessalon capsules 100 mg by mouth twice daily as needed for cough. 3. Dextrose 25 mL IV push for glucose less than 60 as needed. 4. Mucinex 600 mg by mouth twice daily. 5. Heparin sodium 5000 units subcutaneous every 8 hours. 6. Lispro insulin sliding scale subcutaneous with meals and at bedtime. 7. Losartan 50 mg by mouth daily. 8. Multivitamin 1 tablet by mouth daily. 9. Pantoprazole 40 mg by mouth daily. 10. Paxil 20 mg by mouth daily. 11. Zosyn 3.375 g IV every 8 hours. 12. Tramadol 50 mg by mouth every 12 hours as needed for pain. 13. Ambien 10 mg by mouth daily as needed for pain. ALLERGIES: BEES, VICODIN, LATEX, ZOFRAN. FAMILY HISTORY: Denies family history of recurrent or resistant infections. No family history of CAD. Mother with a history of diabetes and passed at age 75 from metastatic lung cancer with mets to the brain. Father passed at age 42 from metastatic lung cancer with mets to the brain. SOCIAL HISTORY: Rarely drinks alcohol. Denies smoking history or recreational drug use. REVIEW OF SYSTEMS: I performed a 10-point review of systems with all the pertinent positives and negatives mentioned in the history of present illness. The remaining review of systems are negative. PHYSICAL EXAM: Vital Signs: Temperature 98.3, heart rate 58, respiratory rate 16, O2 sat 98% on room air, blood pressure 129/78. General: Alert and oriented , appears to be in no acute distress. Head: Normocephalic, atraumatic. ENT: Pupils are reactive to light. Extraocular movements are intact. There is no subconjunctival hemorrhage. Moist mucous membranes. Neck: Supple. No lymphadenopathy. Neurological: Alert and oriented x4. Cranial nerves II through XII are grossly intact. Cardiovascular: Regular rate and rhythm. S1 and S2 present. No murmurs, rubs, or gallops heard. Respiratory: No accessory muscle use. The lungs are clear to auscultation bilateral. Abdomen: Bowel sounds present. Abdomen is soft, nontender, nondistended. Extremities : No lower extremity edema other than some trace edema to the left ankle. Musculoskeletal: No clubbing or cyanosis noted. He has good strength in all extremities. He has full range of motion of the left ankle. Psychological: Calm and cooperative. Skin: No rashes or abnormalities seen. DIAGNOSTIC STUDIES/LABORATORY DATA: Sodium 138, potassium 4.3, chloride 106, CO2 of 28, BUN 12, creatinine 1.05, glucose 149. White blood cell count 8.3, hemoglobin 9.2, hematocrit 27, platelet count 401. CRP on admission 145. Please see impression and recommendations outlined above, recommendations have been discussed with Dr. Janel Pineda. Thank you for asking us to see Mr. Smith in consultation. The case has been reviewed with my attending, Dr. David Arzate, who agrees with the plan of care. Reviewed by VAIBHAV PARSON 05/21/19 [id number]/[facility] #: [id number] MTDD
[2019-05-20] MEDS: PARoxetine HCL TAB* 20 MG PO SCH (20:17)
[2019-05-20] MEDS: Zolpidem TAB* 10 MG PO PRN (23:38)
[2019-05-21] MEDS: Piperacillin/Tazobac ADVAN(*) 3.375 GM in NS 0.9% 100 ML* 100 ML IVPB SCH ×2 (03:42→11:23)
--- NOTE | 2019-05-21 07:06 | PN ---
Subjective Date of Service: 05/21/19 Interval History: HD 7 on 05/21 58 M PMH HTN, s/p sleeve gastrectomy, NIDDM, recent h/o subacute cough, fevers chills all starting after a mechanical fall in mid April, also endorses 30lb weight loss in one month 2/2 to poor PO intake. Tx as outpt for CAP, admitted to hospital with R lung mass vs abscess pleural based with some effusion. Presented with sepsis, improving on tx, awaiting bx result to r/o oncologic process. NO acute overnight events VS stable NO complaint; patient improved ready to be d/c with picc line; requires abx for another 3 weeks Objective Active Medications: Acetaminophen (Tylenol Tab*) 650 mg PO Q6H PRN PRN Reason: PAIN-MILD/TEMP >/= 100.4 Last Admin: 05/19/19 19:56 Dose: 650 mg Benzonatate (Tessalon Cap*) 100 mg PO BID PRN PRN Reason: COUGH Last Admin: 05/18/19 03:38 Dose: 100 mg Dextrose (Dextrose 50% Vial 50 Ml*) 25 ml IV PUSH .FOR FS < 60 - SS PRN PRN Reason: FS < 60 Guaifenesin (Mucinex*) 600 mg PO BID [facility] Last Admin: 05/20/19 20:22 Dose: 600 mg Heparin Sodium (Porcine) (Heparin Vial(*)) 5,000 units SUBCUT Q8HR [facility] Last Admin: 05/20/19 20:18 Dose: 5,000 units Piperacillin Sod/Tazobactam (Sod 3.375 gm/ Sodium Chloride) 100 mls @ 25 mls/ hr IVPB Q8H [facility] Last Admin: 05/21/19 03:42 Dose: 25 mls/hr Insulin Human Lispro (Humalog*) 0 units SUBCUT ACHS [facility]; Protocol Last Admin: 05/20/19 20:23 Dose: Not Given Losartan Potassium (Cozaar Tab*) 50 mg PO DAILY [facility] Last Admin: 05/20/19 10:09 Dose: 50 mg Multivitamins/Minerals (Theragran/Minerals Tab*) 1 tab PO DAILY [facility] Last Admin: 05/20/19 10:10 Dose: 1 tab Pantoprazole Sodium (Protonix Tab*) 40 mg PO QAM [facility] Last Admin: 09/18/19 10:09 Dose: 40 mg Paroxetine HCl (Paxil Tab*) 20 mg PO BEDTIME [facility] Last Admin: 05/20/19 20:17 Dose: 20 mg Pharmacy Consult (Zosyn Per Pharmacy*) 1 note FOLLOW UP .ZOSYN PER PHARMACY [facility] Tramadol HCl (Ultram*) 50 mg PO Q12H PRN PRN Reason: PAIN - MODERATE Last Admin: 05/20/19 20:16 Dose: 50 mg Zolpidem Tartrate (Ambien Tab*) 10 mg PO BEDTIME PRN PRN Reason: SLEEP Last Admin: 05/20/19 23:38 Dose: 10 mg Vital Signs - 8 hr 05/20/19 05/21/19 23:15 02:24 Temperature 98.1 F 97.6 F Pulse Rate 67 52 Respiratory 20 18 Rate Blood Pressure 144/76 157/86 (mmHg) O2 Sat by Pulse 96 97 Oximetry Oxygen Devices in Use Now: None Exam: Patient is lying on a bed with no any acute distress. HEENT: Normocephalic and atraumatic Lung: Decreased breath sound on right lower base Heart: normal heart sound heard with no murmur. Abdomen: Soft, nondistended and nontender. Normal BS heard. Extremity: Normal Neuro: Alert, conscious and Coperative. Moving all four extremity. Result Diagrams: 05/20/19 05:07 05/19/19 05:45 Additional Lab and Data: Microbiology and Other Data: Microbiology 05/14/19 23:54 Aerobic Blood Culture - Preliminary Blood Venous No Growth Day 2 Anaerobic Blood Culture - Preliminary No Growth Day 2 05/14/19 21:28 Aerobic Blood Culture - Preliminary Blood Venous No Growth Day 2 Anaerobic Blood Culture - Preliminary No Growth Day 2 Diagnostic Imagin/15: RLL mass like consolidation Assess/Plan/Problems-Billing Assessment: 58 M PMH HTN, s/p sleeve gastrectomy, NIDDM, recent h/o subacute cough, fevers chills all starting after a mechanical fall in mid April, also endorses 30lb weight loss in one month / to poor PO intake. Tx as outpt for CAP, admitted to hospital with R lung mass vs abscess pleural based with some effusion. Presented with sepsis, improving on tx, bx done on 05/19;awaiting results - Patient Problems (1) Sepsis Current Visit: Yes Status: Acute Comment: - Resolved. Secondary to right lung abscess; patient improved markedly after being on abx; but still waiting for biopsy results to rule out any malignancy - Culture data unrevealing, continue pip/tazo(day 7 on 05/21) - biopsy done; no growth on day 1 on culture - gram stain showed strept -ID consulted; will d/c him on picc line; on ceftriaxone iv and flagyl po will require atleast 1 month of abx (2) Anemia Current Visit: Yes Status: Acute Code(s): D64.9 - ANEMIA, UNSPECIFIED SNOMED Code(s): 506889918 Comment: - Has normocytic anemia with low iron, c/w EAMON - Hb 9.6 wiith low iron, low TIBC and low transferrin which suggests anemia of chronic disease. his ferritin is normal. will have to repeat iron studies again after his infection subsides. (3) Left lateral ankle pain Current Visit: Yes Status: Acute Code(s): M25.572 - PAIN IN LEFT ANKLE AND JOINTS OF LEFT FOOT SNOMED Code(s): 047874508 Comment: - Improving, imaging for clot fracture neg, assume soft tissue 2/2 to [facility] fall - Toradol and Tramadol PRN for pain (4) Diabetes Current Visit: Yes Status: Acute Code(s): E11.9 - TYPE 2 DIABETES MELLITUS WITHOUT COMPLICATIONS SNOMED Code(s): 60752588 Comment: - A1C 6.8, SSI while here in hospital (5) HTN (hypertension) Current Visit: Yes Status: Acute Code(s): I10 - ESSENTIAL (PRIMARY) HYPERTENSION SNOMED Code(s): 56262312 Comment: on losartan (6) Depression Current Visit: Yes Status: Acute Code(s): F32.9 - MAJOR DEPRESSIVE DISORDER , SINGLE EPISODE, UNSPECIFIED SNOMED Code(s): 84820428 Comment: - Paroxetine and zolpidem (7) GERD (gastroesophageal reflux disease) Current Visit: Yes Status: Acute Code(s): K21.9 - GASTRO-ESOPHAGEAL REFLUX DISEASE WITHOUT ESOPHAGITIS SNOMED Code(s): 484669871 Comment: - PPI (8) DVT prophylaxis Current Visit: Yes Status: Acute Code(s): Z29.9 - ENCOUNTER FOR PROPHYLACTIC MEASURES, UNSPECIFIED SNOMED Code(s): 033363589 Comment: - SC heparin (9) Full code status Current Visit: Yes Status: Acute Code(s): Z78.9 - OTHER SPECIFIED HEALTH STATUS SNOMED Code(s): 667707889 Status and Disposition: Inpatient, awaiting bx results to target tx ID following d/c today with iv and oral abx; picc line Attending: Janel Pineda Attestation Documenting Resident: Malika Norris Supervising Physician: Janel Pineda Attestation: This service has been performed in part by a resident under the direction of a teaching physician.I, Janel Pineda, performed the service, or was physically present during the critical, or miles portions of the service, furnished by the resident. I participated in the management of the patient.
[2019-05-21] MEDS: Heparin VIAL(*) 5000 UNITS/ML VIAL (FIVE THOUSAND) SUBCUT SCH ×2 (07:31→14:42)
[2019-05-21] MEDS: Insulin LISPRO* 1 UNITS UNIT SUBCUT SCH ×3 (07:40→18:16)
[2019-05-21] MEDS: Multivitamins/Minerals TAB PO SCH (08:00)
[2019-05-21] MEDS: guaiFENesin ER TAB 600 MG PO SCH (08:00)
[2019-05-21] MEDS: Losartan TAB* 25 MG PO SCH (08:01)
[2019-05-21] MEDS: Pantoprazole TAB * 40 MG TAB PO SCH (08:01)
[2019-05-21] MEDS: traMADol TAB* 50 MG PO PRN (08:09)
--- NOTE | 2019-05-21 10:04 | PN ---
Progress Note - Progress Note Date of Service: 05/21/19 SOAP: Subjective: CC: lung mass HPI: 58 year old man with at least a few weeks of decreased energy, chills, sweats, anorexia and weight loss with productive cough. CT showed right lung mass, had a biopsy that was sent for histology that is pending and GS that showed 4+ neutrophils, the culture is negative. He feels much better since being here, has some drenching sweats still. Appetite returned as has energy. He has had cracked teeth and needed significant dental work over the last year. Objective: Vital Signs Temp 37.0 C 05/21/19 07:29 Pulse 69 05/21/19 07:29 Resp 18 05/21/19 08:17 BP 147/79 05/21/19 07:29 Pulse Ox 100 05/21/19 07:29 Intake & Output 05/20/19 05/21/19 05/21/19 18:59 06:59 18:59 Intake Total 1226 220 121 Balance 1226 220 121 Intake: IV Fluids 396 220 16 ABX - ZOSYN 200 NS (0.9%) 396 20 16 IVPB 110 105 ABX - PIPERACILLIN 110 105 Oral 720 0 Other: Estimated Void Medium # Bowel Movements 0 # Voids 2 0 Gen:awake, no distress HEENT: no thrush or gum abscess Neck: no mass Heart:RRR no murmur Lungs:CTA BL Abd:+BS NTND soft Skin: no rash MSK: no spine tenderness Laboratory Results - last 24 hr 05/20/19 05/20/19 05/20/19 11:44 16:45 20:20 POC Glucose (mg/dL) 151 H 133 H 148 H 05/21/19 07:25 POC Glucose (mg/dL) 141 H Assessment: 1. lung mass with fever, chills, anorexia, elevated CRP, improving on antibiotics; lung abscess, usually related to poor dentition 2. hx gastric sleeve, I don't think abx absorption will be an issue 3. T2 Diabetes Plan: 1. orders written for picc and ceftriaxone 2 gm daily with weekly cbc, cmp, crp , please also send with flagyl 500 mg po twice daily, fu with me 1-2 weeks. We discussed side effects, he will call if fever, rash, or diarrhea. 2. FU histology and final culture as outpatient 35 minutes floor time >50% face to face in counseling regarding above issues.
[2019-05-21 15:34] VITALS: BP 144/79
[2019-05-21] MEDS ORDERED: cefTRIAXone(*) 2 GM in NS 0.9% 100 ML* 100 ML IVPB SCH (16:00)
--- NOTE | 2019-05-21 23:55 | DS ---
CC: Juan Miguel Denson MD; David Arzate MD * DISCHARGE SUMMARY: DATE OF ADMISSION: 05/15/19 DATE OF DISCHARGE: 05/21/19 PRIMARY CARE PHYSICIAN: Juan Miguel Denson MD. PRIMARY DIAGNOSIS: Lung mass associated with fevers, chills, anorexia, possible lung abscess. SECONDARY DIAGNOSES: 1. Obesity, status post gastric sleeve. 2. Type 2 diabetes. 3. Hypertension. 4. Depression. CONSULTS: Dr. David Arzate of infectious disease. PROCEDURE: Ultrasound-guided lung biopsy 05/19/19. DISCHARGE MEDICATIONS: 1. Ceftriaxone IV 2 g daily. 2. Metronidazole 500 mg twice a day. 3. Hydrochlorothiazide 25 mg daily. 4. Losartan 50 mg daily. 5. Aspirin 81 mg daily. 6. Paroxetine 20 mg at bedtime. 7. Naproxen 220 mg every 4 hours as needed for pain. 8. Multivitamin 1 tab daily. 9. Vitamin B12 injections monthly. 10. Ambien 12.5 mg at bedtime as needed for sleep. 11. Omeprazole 20 mg daily. HISTORY OF PRESENT ILLNESS: Mr. Smith is a 58-year-old man with hypertension and obesity, status post sleeve gastrectomy in 2012 resulting in resolved diabetes mellitus, who is presenting with right-sided pleuritic pain, left ankle pain, and decreased appetite with weight loss of 30 pounds with fevers and chills in the last month. He reports that approximately 3 weeks prior presentation he tripped over some uneven sidewalk pavement falling to his right side. He developed aches and pains in his right arm and right chest especially with deep breath over the next few days. Then, approximately 2 weeks prior to presentation, he went to Urgent Care and had a rib x-ray, which was suggestive of atelectasis or consolidation in the right lung base. He was given a 7-day course of Augmentin, a lidocaine patch, and naproxen. The x-ray did not show rib fractures. He followed up with a physician dental office assistant in Dr. Hernandez's office on the day prior to admission and then was referred to the emergency room for further evaluation due to a 30-pound weight loss, poor appetite, productive cough, subjective fevers and chills, with persistent chest discomfort despite treatment with antibiotics. In the emergency room, the patient had leukocytosis of 15.6, with temperature 100.1 and CRP of 145. Initial chest x-ray was concerning for right lower lobe atelectasis versus consolidation. A CT of the chest, abdomen, and pelvis with IV contrast showed a mass-like consolidation with differential of abscess versus neoplasm versus evolving infarct. Dr. Espinosa of pulmonology was consulted who recommended an ultrasound-guided biopsy rather than bronchoscopy given location of the mass. He was referred to the hospitalist service for IV antibiotics and biopsy. HOSPITAL COURSE: The patient was admitted to the hospital over the weekend and was able to have an ultrasound of the chest on the following Saturday, but unable to have biopsy until Saturday. He tolerated the procedure well. Infectious disease was consulted for further help with narrowing antibiotics and switching to oral given no culture data. Recommendation was made for a PICC line with ceftriaxone 2 g daily and to follow up in [facility] for biopsy results. Of note , throughout admission, the patient did complain of left ankle pain, which he reports started weeks before presentation. Exam was not concerning for an infected joint. The patient underwent an ankle x-ray and ultrasound, which were not concerning for fracture or DVT. His pain slowly improved throughout the hospitalization. PERTINENT STUDIES AND LABS: Hemoglobin 9.2, which is lower than the patient's prior baseline, with an MCV of 89. Iron low at 44 with TIBC 223, percent saturation 20, and ferritin 218. Hemoglobin A1c 6.8. Creatinine 1.05. Influenza A and B negative. Ankle x-ray on left, 3 views, without acute osseous injury. Chest, abdomen, and pelvis CT with mass-like consolidation with areas of central hypodensity in the posterior basal segment in the right lower lobe with adjacent pleural thickening and minimal pleural fluid, which could represent a lung abscess, although neoplasm, evolving infarct, pulmonary sequestration, and central obstructing lesion are in the differential. Right posterior inferior pleural thickening and trace right pleural fluid. Moderate hiatal hernia. Surgical change in proximal stomach. Tiny bilateral renal cortical hypodensities, largest located in the left kidney measuring higher than simple fluid density, which could represent a complex cyst or a small solid lesion. Diverticula are present in the distal colon without diverticulitis. Venous Doppler study without evidence of DVT. DISCHARGE PLAN: The patient is to follow up with his primary care physician as well as Dr. Arzate of infectious disease within 1 to 2 weeks of discharge. He should have weekly CBC, CMP, CRP, and labs while on IV ceftriaxone. He will also be on oral metronidazole 500 mg twice daily. Otherwise, there were no significant changes to his home medications. He was also educated on his possible iron deficiency anemia, although iron studies are difficult to interpret in the setting of an acute inflammatory process. He should have this followed up as an outpatient and undergo age-appropriate cancer screening. The patient was educated on return precautions, which include fever, rash, drenching night sweats, acute onset of shortness of breath, or diarrhea that is profuse and watery. He should eat a healthy diet low in processed food and resume activity as tolerated. DISPOSITION: To home. CONDITION: Improved. TIME SPENT: Approximately 60 minutes were spent on the discharge of this patient, more than half of which was spent with care coordination at bedside for interview and exam. [id number] #: [id number] GAVIN
== END 2019-05-21 19:15 | disposition home or self-care (01) | DRG 720 ==
LOC: ED 19:56 → MED 05-15 02:53
PROVIDERS: ADMIT Internal Medicine; ATTEND Internal Medicine
PROC: 0BBK3ZX Excision of Right Lung, Percutaneous Approach, Diagnostic (ICD-10-PCS; 2019-05-19)
PROC: 02HV33Z Insertion of Infusion Device into Superior Vena Cava, Percutaneous Approach (ICD-10-PCS; principal; 2019-05-21)
DX: A41.9 Sepsis, unspecified organism (principal); J85.2 Abscess of lung without pneumonia; E66.9 Obesity, unspecified; E11.9 Type 2 diabetes mellitus without complications; I10 Essential (primary) hypertension; F32.9 Major depressive disorder, single episode, unspecified; M25.572 Pain in left ankle and joints of left foot; K44.9 Diaphragmatic hernia without obstruction or gangrene; J45.909 Unspecified asthma, uncomplicated; G89.29 Other chronic pain; F41.9 Anxiety disorder, unspecified; D64.9 Anemia, unspecified; K57.30 Diverticulosis of large intestine without perforation or abscess without bleeding; K21.9 Gastro-esophageal reflux disease without esophagitis; Z88.8 Allergy status to other drugs, medicaments and biological substances; Z91.030 Bee allergy status; Z98.84 Bariatric surgery status; Z68.28 Body mass index [BMI] 28.0-28.9, adult; Z79.82 Long term (current) use of aspirin; Z91.040 Latex allergy status; Z80.1 Family history of malignant neoplasm of trachea, bronchus and lung; Z80.8 Family history of malignant neoplasm of other organs or systems; Z82.49 Family history of ischemic heart disease and other diseases of the circulatory system; Z72.89 Other problems related to lifestyle
CPT/HCPCS: 10005; 36415; 71046; 71260; 74177; 76604; 80048; 80053; 82728; 83036; 83540; 83550; 83605; 83615; 84155; 84550; 85025; 85610; 86140; 87040; 87070; 87076; 87077; 87102; 87116; 87186; 87205; 87206; 88172; 88173; 88305; 88341; 88342; 99284; A9270-GY; C1751; G8978-GP-CI; G8979-GP-CH; J0696; J1644; J1885; J2310; J2405; J2543; J3010; Q9967